=== PATIENT | female | born 1950 | race Caucasian/White ===

== ENCOUNTER 2016-09-16 18:26 | Observation (INO) ==
[2016-09-16] MEDS ORDERED: Ondansetron 4 MG/2 ML VIAL IV ONE (20:23)
[2016-09-16] MEDS ORDERED: 0.9 % Sodium Chloride 1,000 ML IV ONE (20:23)
[2016-09-16] MEDS ORDERED: *HR* Morphine 2 MG/ML SYRINGE IV ONE (20:23)
[2016-09-16 20:33] LABS: Bilirubin,Urine Small (Negative); Blood,Urine Negative (Negative); Clarity,Urine Cloudy (Clear); Color,Urine Dark Yellow (Yellow); Glucose,Urine (UA) Normal (Normal); Ketones,Urine 40 mg/dL (Negative); Leukocyte Esterase,Urine Small (Negative); Nitrite,Urine Negative (Negative); Protein,Urine Negative (Neg-Trace); Specific Gravity,Urine 1.023 (1.010-1.025); Urobilinogen,Urine Normal (Normal)
[2016-09-16 20:35] LABS: Bacteria,Urine None Seen per hpf (None-Few); Hyaline Casts,Urine None Seen per lpf (None-Few); RBC,Urine 0-3 per hpf (0-3); Squamous Epithelial Cell,Urine Many per lpf (None-Few); WBC,Urine 0-3 per hpf (0-3)
[2016-09-16 20:44] LABS: Basophils % 0.4 %; Eosinophils # 0.1 K/mcL (0.0-0.6); Hematocrit 43.8 % (35.3-44.9); Hemoglobin 14.9 g/dL (11.5-15.4); Immature Granulocytes % 0.1 % (0-4); Lymphocytes # 1.1 K/mcL (0.6-4.6); Lymphocytes % 15.3 %; Mean Corpuscular Hemoglobin 30.7 pg (28.0-33.3); Mean Corpuscular Volume 90.1 fL (83.0-100.0); Monocytes # 0.7 K/mcL (0.0-1.3); Monocytes % 9.8 %; Neutrophils # 5.1 K/mcL (1.6-8.9); Platelet Count 145 K/mcL (140-400); Red Blood Count 4.86 M/mcL (3.82-4.97); Red Cell Distribution Width 12.4 % (11.5-14.5); Segmented Neutrophils % 73.4 %
[2016-09-16 20:49] LABS: INR 1.2; Prothrombin Time 12.8 Seconds (9.4-12.1)
[2016-09-16 20:52] LABS: Activated Partial Thrombo Time 26.2 Seconds (26.0-36.0)
--- NOTE | 2016-09-16 20:54 | Emergency Department Note ---
Disposition Clinical Impression: Choledocholithiasis Disposition: Admitted As Inpatient Condition: Good Referrals: Jonh Guerra MD [Primary Care Provider] - Forms: Work/School Release, ED Satisfaction Letter Abdominal Pain HPI - General Chief Complaint: ED Abdominal Pain Stated Complaint: "chepe got gallstones" Time Seen by Provider: 09/16/16 20:18 Source: patient Nursing Notes Reviewed: Yes Vital Signs Reviewed: Yes - History of Present Illness HPI Narrative: Patient comes in complaining of abdominal pain is going on for few days. Patient states she was told she had gallstones and her surgeon ordered a scan to be performed. Patient states she had not keep anything down so she presents earlier. Patient denies fevers or chills denies bowel bladder dysfunction. Patient does complains of pain in her upper abdomen. Patient denies aggravating or alleviating factors. Patient states the pain starts in the middle and radiates to this sides bilaterally. Patient denies prior history of similar symptoms. Pain Scale: 8 - Related Data Home Medications Medication Instructions Recorded Confirmed Aspirin Enteric Coated [Aspirin EC] 81 mg PO DAILY 03/10/16 03/10/16 Atorvastatin [Lipitor] 10 mg PO HS 03/10/16 03/10/16 Cholecalciferol (D-3) [Vitamin D] 1,000 unit PO DAILY 03/10/16 03/10/16 Levothyroxine [Synthroid] 50 mcg PO DAILY 03/10/16 03/10/16 Purvis-3/Dha/Epa/Fish Oil [Fish Oil 1,000 mg PO DAILY 03/10/16 03/10/16 1,000 mg Softgel] Previous Rx's Medication Instructions Recorded Ondansetron ODT [Zofran ODT] 4 mg SL Q6HR PRN #7 tab.rapdis 03/21/16 Oxycodone HCl/Acetaminophen 1 each PO Q6HR PRN #7 tablet 03/21/16 [Percocet 5-325 mg Tablet] Tamsulosin HCl [Flomax] 0.4 mg PO DAILY #7 cap.er.24h 03/21/16 Allergies Allergy/AdvReac Type Severity Reaction Status Date / Time Penicillins Allergy See Verified 09/16/16 19:25 Comments All systems ED: reviewed and negative except as stated. Abdominal Pain PMH - Past Medical History Medical history: Reports: arthritis, cancer, hyperlipidemia, hypertension, osteoporosis, thyroid disease Female Surgical History: Reports: hip replacement Psychiatric history: Reports: anxiety - Social History Smoking status: Never smoker Alcohol use: Reports: none Drug use: Reports: none Physical Exam - General Limitations: no limitations General appearance: alert - Head Head exam: atraumatic, normocephalic, normal inspection - Eye Eye exam: Present: normal appearance, PERRL, EOMI - ENT ENT exam: normal exam, normal oropharynx, mucous membranes moist - Neck Neck exam: Present: normal inspection, full ROM, trachea midline - Chest Chest inspection: Present: normal inspection, symmetric chest wall rise - Respiratory Respiratory exam: Present: normal lung sounds bilaterally - Cardiovascular Cardiovascular exam: Present: regular rate, normal rhythm, normal heart sounds - Abdominal Exam Abdominal exam: Present: soft, tenderness. Absent: distention, guarding, rebound Abdominal tenderness: Present: epigastrium - Extremities Exam Extremities exam: Present: normal inspection, full ROM. Absent: tenderness, pedal edema - Back Exam Back exam: Present: normal inspection, full ROM. Absent: tenderness - Neurological Exam Neurological exam: Present: alert, oriented X3 - Psychiatric Psychiatric exam: Present: normal affect, normal mood - Skin Skin exam: Present: warm, dry, intact, normal color Course - Consultations Consultation #1: Discussed this patient with Dr. CORDOVA who states that the patient will need ERCP. Patient will be admitted to the hospitalist service was consult to gastroenterology Vital Signs Temperature 98.0 F 09/16/16 19:21 Pulse Rate 66 09/16/16 19:21 Respiratory Rate 17 09/16/16 19:21 Blood Pressure 117/62 09/16/16 19:21 O2 Sat by Pulse Oximetry 98 09/16/16 19:21 Temperature 98.0 F 09/16/16 19:21 Pulse Rate 55 09/16/16 21:30 Respiratory Rate 20 09/16/16 21:30 Blood Pressure 152/75 09/16/16 21:30 O2 Sat by Pulse Oximetry 97 09/16/16 21:30 Oxygen Delivery Oxygen Delivery Room Air Abdominal Pain - Differential Diagnosis Differential Diagnosis: Likely: abdominal pain non-specific, acute appendicitis , constipation, diverticulitis, gastroenteritis, small bowel obstruction - Lab Data Lab results reviewed: Yes I reviewed the patient's lab results. Result diagrams: 09/16/16 20:33 02/14/17 20:33 Lab Results 09/16/16 09/16/16 09/16/16 Range/Units 20:15 20:33 20:33 WBC 6.9 (4.3-11.1) K/mcL RBC 4.86 (3.82-4.97) M/mcL Hgb 14.9 (11.5-15.4) g/dL Hct 43.8 (35.3-44.9) % MCV 90.1 (83.0-100.0) fL MCH 30.7 (28.0-33.3) pg MCHC 34.0 (31.6-35.5) g/dL RDW 12.4 (11.5-14.5) % Plt Count 145 (140-400) K/mcL MPV 11.0 (9.4-12.4) fL Immature Gran % 0.1 (0-4) % Seg Neutrophils % 73.4 % Lymphocytes % 15.3 % Monocytes % 9.8 % Eosinophils % 1.0 % Basophils % 0.4 % Neutrophils # 5.1 (1.6-8.9) K/mcL Lymphocytes # 1.1 (0.6-4.6) K/mcL Monocytes # 0.7 (0.0-1.3) K/mcL Eosinophils # 0.1 (0.0-0.6) K/mcL Basophils # 0.0 (0.0-0.2) K/mcL PT 12.8 H (9.4-12.1) Seconds INR 1.2 APTT 26.2 (26.0-36.0) Seconds Sodium (136-145) mEq/L Potassium (3.5-4.5) mEq/L Chloride (98-109) mEq/L Carbon Dioxide (19-29) mEq/L BUN (7-20) mg/dL Creatinine (0.57-1.11) mg/dL Est GFR ( Amer) (> 60) Est GFR (Non-Af Amer) (> 60) BUN/Creatinine Ratio (6-26) Glucose (70-99) mg/dL Calculated Osmolality (280-300) Lactic Acid (0.5-2.2) mmol/L Calcium (8.6-10.8) mg/dL Total Bilirubin (0.2-1.2) mg/dL AST (5-34) Units/L ALT (0-55) Units/L Alkaline Phosphatase (38-126) Units/L Troponin I (0-0.03) ng/mL Serum Total Protein (6.0-8.3) g/dL Albumin (3.5-5.0) g/dL Globulin (2.4-3.5) g/dL Albumin/Globulin Ratio (1.1-2.2) Lipase (8-78) Units/L Urine Color Dark Yellow (Yellow) Urine Clarity Cloudy A (Clear) Urine pH 6.0 (5.0-8.0) pH Units Ur Specific [place] 1.023 (1.010-1.025) Urine Protein Negative (Neg-Trace) mg/dL Urine Glucose (UA) Normal (Normal) mg/dL Urine Ketones 40 H (Negative) mg/dL Urine Blood Negative (Negative) Urine Nitrite Negative (Negative) Urine Bilirubin Small H (Negative) Urine Urobilinogen Normal (Normal) mg/dL Ur Leukocyte Esterase Small H (Negative) Urine Microscopic RBC 0-3 (0-3) per hpf Urine Microscopic WBC 0-3 (0-3) per hpf Ur Squamous Epith Cells Many H (None-Few) per lpf Urine Bacteria None Seen (None-Few) per hpf Hyaline Casts None Seen (None-Few) per lpf Ur Culture Indicated? YES A (NO) 09/16/16 09/16/16 09/16/16 Range/Units 20:33 20:33 20:33 WBC (4.3-11.1) K/mcL RBC (3.82-4.97) M/mcL Hgb (11.5-15.4) g/dL Hct (35.3-44.9) % MCV (83.0-100.0) fL MCH (28.0-33.3) pg MCHC (31.6-35.5) g/dL RDW (11.5-14.5) % Plt Count (140-400) K/mcL MPV (9.4-12.4) fL Immature Gran % (0-4) % Seg Neutrophils % % Lymphocytes % % Monocytes % % Eosinophils % % Basophils % % Neutrophils # (1.6-8.9) K/mcL Lymphocytes # (0.6-4.6) K/mcL Monocytes # (0.0-1.3) K/mcL Eosinophils # (0.0-0.6) K/mcL Basophils # (0.0-0.2) K/mcL PT (9.4-12.1) Seconds INR APTT (26.0-36.0) Seconds Sodium 139 (136-145) mEq/L Potassium 4.6 H (3.5-4.5) mEq/L Chloride 108 (98-109) mEq/L Carbon Dioxide 21 (19-29) mEq/L BUN 19 (7-20) mg/dL Creatinine 0.78 (0.57-1.11) mg/dL Est GFR ( Amer) > 60 (> 60) Est GFR (Non-Af Amer) > 60 (> 60) BUN/Creatinine Ratio 24 (6-26) Glucose 98 (70-99) mg/dL Calculated Osmolality 290 (280-300) Lactic Acid 0.8 (0.5-2.2) mmol/L Calcium 9.6 (8.6-10.8) mg/dL Total Bilirubin 2.5 H D (0.2-1.2) mg/dL AST 261 H (5-34) Units/L ALT 237 H (0-55) Units/L Alkaline Phosphatase 199 H (38-126) Units/L Troponin I 0.00 (0-0.03) ng/mL Serum Total Protein 7.4 (6.0-8.3) g/dL Albumin 3.9 (3.5-5.0) g/dL Globulin 3.5 (2.4-3.5) g/dL Albumin/Globulin Ratio 1.1 (1.1-2.2) Lipase 22 (8-78) Units/L Urine Color (Yellow) Urine Clarity (Clear) Urine pH (5.0-8.0) pH Units Ur Specific [place] (1.010-1.025) Urine Protein (Neg-Trace) mg/dL Urine Glucose (UA) (Normal) mg/dL Urine Ketones (Negative) mg/dL Urine Blood (Negative) Urine Nitrite (Negative) Urine Bilirubin (Negative) Urine Urobilinogen (Normal) mg/dL Ur Leukocyte Esterase (Negative) Urine Microscopic RBC (0-3) per hpf Urine Microscopic WBC (0-3) per hpf Ur Squamous Epith Cells (None-Few) per lpf Urine Bacteria (None-Few) per hpf Hyaline Casts (None-Few) per lpf Ur Culture Indicated? (NO) - Radiology Data Radiology results reviewed: Yes I reviewed the patient's radiology results. Abdomen/Pelvis CT 09/16/16 20:18 IMPRESSION: Residual or recurrent 5 mm calculus within the distal common bile duct with dilatation of the common bile duct and urothelial enhancement, suggestive of inflammation or potentially infection. A small amount of pneumobilia is also seen within the left hepatic lobe; correlate with history of any recent biliary intervention. Cholelithiasis. Mild gallbladder wall thickening is seen, for which cholecystitis is a consideration. Right upper quadrant ultrasound is suggested for further characterization. Diverticulosis, without yasmin diverticulitis. Fecal loading of the colon. D/ / Kt Rosenberg MD / Kt Rosenberg MD Interpreting Provider: Kt Rosenberg MD Critical Care Time Total Critical Care Time: 45 Attestation: Critical care performed: Time is exclusive of separately billable procedures. Time includes: direct patient care, patient reassessment, coordination of patient care, interpretation of data (laboratory data, radiology data, and respiratory data), review of patient's medical records, medical consultation and documentation of patient care. Procedures included in critical care time: Procedures excluded from critical care time:
[2016-09-16 20:58] LABS: Alanine Aminotransferase 237 Units/L (0-55); Albumin 3.9 g/dL (3.5-5.0); Albumin/Globulin Ratio 1.1 (1.1-2.2); Alkaline Phosphatase 199 Units/L (38-126); Aspartate Amino Transferase 261 Units/L (5-34); BUN/Creatinine Ratio 24 (6-26); Blood Urea Nitrogen 19 mg/dL (7-20); Calcium 9.6 mg/dL (8.6-10.8); Carbon Dioxide 21 mEq/L (19-29); Chloride 108 mEq/L (98-109); Globulin 3.5 g/dL (2.4-3.5); Glucose 98 mg/dL (70-99); Lipase 22 Units/L (8-78); Osmolality,Calculated 290 (280-300); Potassium 4.6 mEq/L (3.5-4.5); Sodium 139 mEq/L (136-145); Total Protein 7.4 g/dL (6.0-8.3); eGFR For African Americans > 60 (> 60); eGFR For Non-African Americans > 60 (> 60)
[2016-09-16 21:01] LABS: Bilirubin,Total 2.5 mg/dL (0.2-1.2)
[2016-09-17] MEDS ORDERED: Naloxone 0.4 MG/ML INJ IVP PRN (01:15)
[2016-09-17] MEDS ORDERED: Benzonatate 100 MG CAPSULE PO PRN (01:15)
[2016-09-17] MEDS ORDERED: Acetaminophen 325 MG TABLET PO PRN (01:15)
--- NOTE | 2016-09-17 01:30 | Internal Med History&Physical ---
Date of Encounter: 09/16/16 Time of Encounter: 23:45 Assessment and Plan (1) Acute abdominal pain syndrome Current visit: Yes Status: Acute . (2) Cholestatic jaundice Current visit: Yes Status: Acute . (3) Calculus of common bile duct and gallbladder Current visit: Yes Status: Acute . (4) Hypothyroidism Current visit: Yes Status: Chronic . Qualifiers: Hypothyroidism type: acquired Qualified Code(s): E03.9 - Hypothyroidism, unspecified (5) Dyslipidemia Current visit: Yes Status: Chronic . (6) Hypertension Current visit: Yes Status: Chronic . Qualifiers: Hypertension type: essential hypertension Qualified Code(s): I10 - Essential (primary) hypertension (7) Choledocholithiasis Current visit: Yes Status: Acute . (8) Obesity (BMI 30.0-34.9) Current visit: Yes Status: Chronic . (9) Constipation Current visit: Yes Status: Chronic . Qualifiers: Constipation type: unspecified constipation type Qualified Code(s): K59.00 - Constipation, unspecified Internal Medicine - H&P: HPI Chief complaint: Acute abdominal pain Admitted From: Emergency Dept Plans for Post Hospital Care: Home History of present illness: Ms. Sterling is a 66 year old female with medical history significant for cholelithiasis, hypothyroidism, hypertension, dyslipidemia, diverticulosis coli , GERD/dysphagia/eosinophilic esophagitis,chronic LBP s/p lumbar fusion, mixed anxiety disorder, osteoarthritis, osteopenia, migraine, urge incontinence/ urinary retention, obesity, nonsmoker. The patient was visited and interviewed and examined. Patient is admitted to [facility] via the emergency department with reports of 6 weeks of the generalized abdominal pain symptoms worse in the days leading up to admission. She had been seen as an outpatient by her primary care physician and general surgeon or studies have been performed suggesting the cholelithiasis and possible associated cholecystitis. Plan was to proceed with elective cholecystectomy. However the patient became more symptomatic and grossly anorectic for solids and liquids. Due to inability to oral nutrition and hydration she presented earlier. She denied any associated fevers chills sweats. Denies any overt bowel or bladder dysfunction diarrhea constipation melena or hematemesis bright red blood per rectum. Denies flank pain dysuria hematuria. Denies any upper respiratory complaints. He acknowledges pain in the upper abdomen. Seems him again in the middle of the upper abdomen and radiates laterally into both sides and flank. Prior history of similar complaints. Denies any specific aggravating or alleviating factors. Findings in the ED: temperature 98 pulse 55-66 respirations 17-20 BP 117-152/60-75 O2 saturation 98% room air. WBC 6.9 hemoglobin 14.9 platelets 145,000. Differential normal. PT 12.8 INR 1.2. PTT 26.2. Urinalysis cloudy. Large ketones. Small bilirubin. Small leukocyte esterase. 3 RBC. 3 WBC. Many epithelial cells. Metabolic panel normal. Hepatic function total bilirubin 2.5 AST 261 ALT 237 alkaline phosphatase 199. Albumin 3.9 total 7.[address]. Lipase 22 CT abdomen and pelvis w/IV contrast demonstrated residual/recurrent 5 mm calculus within distal common bile duct. Dilatation of common bile duct and urothelial enhancement. Findings suggestive of inflammation versus potentially infection. Small amount of pneumobilia with a left hepatic lobe. Cholelithiasis. Mild gallbladder wall thickening. Consider cholecystitis. Diverticulosis without diverticulitis. Fecal loading of colon. No evidence of free air or fluid. Fat-containing periumbilical hernia. No inguinal adenopathy. Bladder grossly unremarkable. Appendix within normal limits and caliper. Small bowel loops nondilated. Calcification of the abdominal aorta and iliac arteries. Perinephric stranding. Bilateral pelviectasis. Lower atelectasis. Right lower lobe pulmonary nodules consistent with granulomatous disease. 2 mm noncalcified right lower lobe pulmonary nodule unchanged. Preliminary impression suggest symptomatic cholelithiasis with common bile duct distal obstruction with 5 mm calculus. RadioGraphic findings suggest associated cholecystitis. Laboratory suggest a cholestatic jaundice due to common bile duct obstruction. She does not meet SIRS or sepsis criteria at the time of admission. Findings suggest acute need for ERCP and sphincterotomy and stone retrieval. Ultimately cholecystectomy will be required. Patient is at risk for further acute clinical decline and morbidity given her presenting complaints, findings and comorbidities. Workup and treatment will proceed comprehensively. Cumulative laboratory and radiographic data base was reviewed, considered and discussed. Pertinent ancillary medical records including ECW and PCI documentation was reviewed and considered. Given the patient's presenting concerns, past medical history, clinical findings and symptoms, she is admitted at this time will undergo further evaluation and disposition. Orders were written as per the computerized physician cook short order system.......................................................................... .................... Consultative opinions will be sought as clinical circumstances justify. Initial consultative opinion has been requested of gastroenterology in anticipation of ERCP/sphincterotomy and CBD calculus retrieval. General surgery consultation anticipated following ERCP for elective cholecystectomy planning. Pain management needs will be addressed. Laboratory and radiographic data base will be updated as appropriate. Studies include: Cultures of blood and urine, amylase, lipase, PT/INR, APTT, cardiac injury panel, BNP, metabolic and hematologic panel, magnesium, phosphorus, ionized calcium, thyroid panel, lipid profile, A1c, C-peptide, CRP, sedimentation rate, UA, UDS, hepatitis (ABC) profile, blood gas, lactic acid, serologies, etc. Precautions: Aspiration, fall, delirium protocol/surveillance initiated. Telemetry with continuous hemodynamic monitoring and pulse oximetry initiated. Empiric antibody coverage: Intravenous Invanz pending culture data. Special studies: CT abd/pelvis, chest x-ray, telemetry, EKG. Pulmonary toilet: Incentive spirometry. Aerosol bronchodilator, mucolytic, antitussive PRN. Supplemental oxygen. Corticosteroid therapy PRN. CPAP/BiPAP supplemental oxygen PRN. Aerosol Mucomyst therapy PRN. Fluid and electrolyte repletion efforts will proceed. Careful attention to fluid balance and renal recovery will be emphasized. Avoidance of nephrotoxic exposure and adverse drug drug interaction in the setting of impaired renal function will be monitored closely. Acute coronary syndrome protocol/surveillance initiated. DVT and PUD prophylaxis initiated: PPI therapy, intermittent pneumatic cuffs/ TEDs. Subcutaneous heparin. Early ambulation will be encouraged. Immunization updates recommended. Influenza and pneumococcal vaccinations as part of ongoing preventative healthcare recommendations strongly recommended. Smoking cessation counseling briefly addressed. Patient is a nonsmoker. Advanced care directive discussion briefly addressed. Patient does not declare any healthcare restrictions at this time. Cardiovascular risk appraisal and cardiovascular risk reduction efforts will be emphasized. Physical and occupational therapy may be consulted to evaluate/assess patient's functional capacity and progress mobility if circumstances justify. Nutrition/dietary education counseling may be considered as circumstances justify. Outpatient medication schedules will be reviewed, confirmed and facilitated as appropriate. Reconciliation of home treatments including adjustments, substitutions and reintroduction into the treatment regimen will address necessary maintenance therapies for chronic pre-existing medical conditions. Plan of care has been reviewed and discussed in detail with the patient. Questions addressed. Hospital course dependent upon clinical findings, treatment response and potential consultative interventions. Patient is at risk for further acute clinical decline and morbidity due to presenting chief complaints, findings and comorbid conditions. Condition is serious. Prognosis is cautiously optimistic. CODE STATUS is full. Past Med Surg Social Fam HX - Past Medical History Source: old records reviewed Medical history: arthritis, cancer, GERD (Eosinophilic esophagitis. Dysphagia. Gastric polyp.), hyperlipidemia, hypertension, migraine, osteoporosis ( Osteoporosis. Vitamin D deficiency.), renal disease (Overactive bladder. Incontinence, urge; urinary retention.), thyroid disease, other (Chronic low back pain status post lumbar fusion. Diverticulosis.) Psychiatric history: anxiety, other - Past Surgical History Surgical History: hip replacement (total hip replacement ), orthopedic, other (Lumbar fusion 2010. Left carpal tunnel surgery 2010. Right carpal tunnel surgery 2009. Back surgery 2009.), other (Colonoscopy. Upper endoscopy. Thyroidectomy. Bilateral tubal ligation 1979.) - Social History Smoking Status: Never smoker Smokeless Tobacco Status: No Alcohol use: none Drug use: none Occupational status: retired Current living situation: With Family Activity Level: Independent ambulation, Mostly sedentary Recent Out of Country Travel Within the Last 8 Weeks: No Exposure or Possible Exposure to Illness During Travel: No - Family History Mother Family Member Ethnicity: Non- Age at : 82 Cause of : Dementia/old age Hx Family GI Disorders: (Gallbladder removed) Father Family Member Ethnicity: Non- Age at : 80 Cause of : CHF Hx Family Cardiac Disorders: Yes (CHF) Hx Family Medical Disorders: (diabetes) Internal Medicine - H&P: Meds Aspirin Enteric Coated [Aspirin EC] 81 mg PO DAILY 03/10/16 [History] Cholecalciferol (D-3) [Vitamin D] 1,000 unit PO DAILY 03/10/16 [History] Levothyroxine [Synthroid] 50 mcg PO DAILY 03/10/16 [History] [place]-3/Dha/Epa/Fish Oil [Fish Oil 1,000 mg Softgel] 1,000 mg PO DAILY 03/10/16 [History] Omeprazole [PriLOSEC] 40 mg PO DAILY 09/17/16 [History] Rosuvastatin Calcium [Rosuvastatin Calcium] 10 mg PO DAILY 09/17/16 [History] Allergies Penicillins Allergy (Verified 09/17/16 09:22) See Comments childhood allergy. unsure of reaction All Systems PM: A 10-system review of systems was performed and is negative for pertinent findings except as documented above in the HPI. - Constitutional Constitutional: as per HPI, malaise, no chills, no fever(s), no night sweats - EENT Eyes: as per HPI, no change in vision, no discharge, no pain, no photophobia Ears: as per HPI, no ear discharge, no ear pain, no tinnitus Nose, mouth and throat: as per HPI, no dysphagia, no nasal discharge, no neck pain, no sore throat - Cardiovascular Cardiovascular ROS IM: as per HPI, lightheadedness, no chest pain, no diaphoresis, no dyspnea, no palpitations, no syncope - Respiratory Respiratory: as per HPI, no cough, no dyspnea, no wheezing, no excessive phlegm production - Gastrointestinal Gastrointestinal: as per HPI, abdominal pain, bloating, cramping, nausea, vomiting, other, no diarrhea, no hematemesis, no hematochezia, no melena - Genitourinary Genitourinary: as per HPI, urinary incontinence, no change in urinary stream, no dysuria, no flank pain, no hematuria Menstruation: as per HPI, post menopausal - Musculoskeletal Musculoskeletal ROS IM: as per HPI, no numbness, no tingling - Integumentary Integumentary IM: as per HPI, no rash, no unusual bruising - Neurological Neurological ROS: as per HPI, no confusion, no convulsions, no focal weakness, no numbness, no tingling, no tremor(s) - Psychiatric Psychiatric: as per HPI - Endocrine Endocrine IM: as per HPI - Hematologic/Lymphatic Hematologic/Lymphatic: as per HPI - Allergic/Immunologic Allergic/Immunologic: as per HPI - Constitutional Vitals: Temp Pulse Resp BP Pulse Ox 98.2 F 53 14 148/75 97 09/17/16 00:34 09/17/16 00:34 09/17/16 00:34 09/17/16 00:34 09/17/16 00:34 General appearance: Present: mild distress, A&O X 3, obese, answers questions appropriately - Head Head exam: Present: atraumatic, normocephalic - Eye Eye exam: Present: EOMI, PERRL, conjuntiva pink, sclera anicteric Pupils: Present: normal accommodation, PERRL - ENT ENT exam: Present: mucous membranes moist, normal external ear exam, normal oropharynx - Neck Neck exam general surgery: Present: full ROM, supple, trachea midline. Absent: lymphadenopathy, tenderness, nuchal rigidity - Respiratory Respiratory exam: Present: decreased breath sounds, CTAB. Absent: accessory muscle use, rales, rhonchi, wheezes - Cardiovascular Cardiovascular exam: Present: distant heart sounds, RRR, +S1, +S2. Absent: diastolic murmur, gallop, rubs, systolic murmur - GI/Abdominal GI/Abdominal exam: Present: normal bowel sounds, soft, tenderness, no peritoneal signs. Absent: distended, guarding, mass, rebound, rigid - Extremities Exam Extremities exam: Present: full ROM, warm, radial pulses palpable and symetrical. Absent: calf tenderness, cyanotic, pedal edema - Neurological Exam Neurological exam: Present: alert, CN II-XII intact, oriented X3, no focal deficits. Absent: pronater drift, facial droop, speech deficit - Psychiatric Psychiatric exam: Present: normal affect, normal mood - Skin Skin exam: Present: dry, intact, warm. Absent: petechiae, rash, urticaria, vesicles Internal Med - H&P Results - Labs CBC & Chem 7: 09/17/16 05:20 09/17/16 05:20 - Impressions Vital Signs Temp Pulse Resp BP Pulse Ox 09/17/16 00:34 98.2 F 53 14 148/75 97 09/16/16 23:48 20 141/85 09/16/16 23:00 56 20 141/85 98 09/16/16 21:30 55 20 152/75 97 09/16/16 21:00 52 20 141/66 95 09/16/16 20:30 56 20 141/76 95 09/16/16 20:15 64 20 141/71 99 09/16/16 19:21 98.0 F 66 17 117/62 98 Intake and Output 09/16/16 09/16/16 09/17/16 15:59 23:59 07:59 Intake Total 1000 / 1000 Balance 1000 / 1000 Intake: IV Fluids 1000 / 1000 0.9 % Sodium Chloride 1, 1000 / 1000 000 ML @ Wide Open IV BOLUS ONE Rx#:[id number] Other: Stool Characteristics Normal for Patient Stool Color Brown Weight 72.575 kg 72.66 kg Patient Weight 09/17/16 23:59 Weight 72.66 kg Short CBC 09/16/16 Range/Units 20:33 WBC 6.9 (4.3-11.1) K/mcL Hgb 14.9 (11.5-15.4) g/dL Hct 43.8 (35.3-44.9) % Plt Count 145 (140-400) K/mcL Neutrophils # 5.1 (1.6-8.9) K/mcL BMP 09/16/16 Range/Units 20:33 Sodium 139 (136-145) mEq/L Potassium 4.6 H (3.5-4.5) mEq/L Chloride 108 (98-109) mEq/L Carbon Dioxide 21 (19-29) mEq/L BUN 19 (7-20) mg/dL Creatinine 0.78 (0.57-1.11) mg/dL Glucose 98 (70-99) mg/dL Calcium 9.6 (8.6-10.8) mg/dL Cardiac Enzymes 09/16/16 Range/Units 20:33 Troponin I 0.00 (0-0.03) ng/mL Liver Function 09/16/16 Range/Units 20:33 Total Bilirubin 2.5 H D (0.2-1.2) mg/dL AST 261 H (5-34) Units/L ALT 237 H (0-55) Units/L Alkaline Phosphatase 199 H (38-126) Units/L Albumin 3.9 (3.5-5.0) g/dL Urine 09/16/16 Range/Units 20:15 Urine Color Dark Yellow (Yellow) Urine Clarity Cloudy A (Clear) Urine pH 6.0 (5.0-8.0) pH Units Ur Specific Stamps 1.023 (1.010-1.025) Urine Protein Negative (Neg-Trace) mg/dL Urine Glucose (UA) Normal (Normal) mg/dL Abnormal lab results PT 12.8 Seconds (9.4-12.1) H 09/16/16 20:33 Potassium 4.6 mEq/L (3.5-4.5) H 09/16/16 20:33 Total Bilirubin 2.5 mg/dL (0.2-1.2) H D 09/16/16 20:33 AST 261 Units/L (5-34) H 09/16/16 20:33 ALT 237 Units/L (0-55) H 09/16/16 20:33 Alkaline Phosphatase 199 Units/L (38-126) H 09/16/16 20:33 Urine Clarity Cloudy (Clear) A 09/16/16 20:15 Urine Ketones 40 mg/dL (Negative) H 09/16/16 20:15 Urine Bilirubin Small (Negative) H 09/16/16 20:15 Ur Leukocyte Esterase Small (Negative) H 09/16/16 20:15 Ur Squamous Epith Cells Many per lpf (None-Few) H 09/16/16 20:15 Ur Culture Indicated? YES (NO) A 09/16/16 20:15 Allergies Allergy/AdvReac Type Severity Reaction Status Date / Time Penicillins Allergy See Verified 09/16/16 19:25 Comments Laboratory Results WBC 6.9 K/mcL (4.3-11.1) 09/16/16 20:33 RBC 4.86 M/mcL (3.82-4.97) 09/16/16 20:33 Hgb 14.9 g/dL (11.5-15.4) 09/16/16 20:33 Hct 43.8 % (35.3-44.9) 09/16/16 20: MCV 90.1 fL (83.0-100.0) 09/16/16 20:33 MCH 30.7 pg (28.0-33.3) 09/16/16 20:33 MCHC 34.0 g/dL (31.6-35.5) 09/16/16 20: RDW 12.4 % (11.5-14.5) 09/16/16 20:33 Plt Count 145 K/mcL (140-400) 09/16/16 20:33 MPV 11.0 fL (9.4-12.4) 09/16/16 20: Immature Gran % 0.1 % (0-4) 09/16/16 20: Seg Neutrophils % 73.4 % 09/16/16 20:33 Lymphocytes % 15.3 % 09/16/16 20:33 Monocytes % 9.8 % 09/16/16 20:33 Eosinophils % 1.0 % 09/16/16 20: Basophils % 0.4 % 09/16/16 20:33 Neutrophils # 5.1 K/mcL (1.6-8.9) 09/16/16 20:33 Lymphocytes # 1.1 K/mcL (0.6-4.6) 09/16/16 20: Monocytes # 0.7 K/mcL (0.0-1.3) 09/16/16 20: Eosinophils # 0.1 K/mcL (0.0-0.6) 09/16/16: Basophils # 0.0 K/mcL (0.0-0.2) 09/16/16 20:33 PT 12.8 Seconds (9.4-12.1) H 09/16/16 20:33 INR 1.2 09/16/16 20:33 APTT 26.2 Seconds (26.0-36.0) 09/16/16 20:33 Sodium 139 mEq/L (136-145) 09/16/16 20:33 Potassium 4.6 mEq/L (3.5-4.5) H 09/16/16 20:33 Chloride 108 mEq/L (98-109) 09/16/16 20:33 Carbon Dioxide 21 mEq/L (19-29) 09/16/16 20:33 BUN 19 mg/dL (7-20) 09/16/16 20: Creatinine 0.78 mg/dL (0.57-1.11) 09/16/16 20:33 Est GFR ( Amer) > 60 (> 60) 09/16/16 20:33 Est GFR (Non-Af Amer) > 60 (> 60) 09/16/16 20:33 BUN/Creatinine Ratio 24 (6-26) 09/16/16 20:33 Glucose 98 mg/dL (70-99) 09/16/16 20:33 Calculated Osmolality 290 (280-300) 09/16/16 20:33 Lactic Acid 0.8 mmol/L (0.5-2.2) 09/16/16 20:33 Calcium 9.6 mg/dL (8.6-10.8) 09/16/16 20:33 Total Bilirubin 2.5 mg/dL (0.2-1.2) H D 09/16/16 20:33 AST 261 Units/L (5-34) H 09/16/16 20:33 ALT 237 Units/L (0-55) H 09/16/16 20:33 Alkaline Phosphatase 199 Units/L (38-126) H 09/16/16 20:33 Troponin I 0.00 ng/mL (0-0.03) 09/16/16 20:33 Serum Total Protein 7.4 g/dL (6.0-8.3) 09/16/16 20: Albumin 3.9 g/dL (3.5-5.0) 09/16/16: Globulin 3.5 g/dL (2.4-3.5) 09/16/16 20: Albumin/Globulin Ratio 1.1 (1.1-2.2) 09/16/16 20: Lipase 22 Units/L (8-78) 09/16/16 20: Urine Color Dark Yellow (Yellow) 09/16/16 20: Urine Clarity Cloudy (Clear) A 09/16/16 20: Urine pH 6.0 pH Units (5.0-8.0) 09/16/16 20:15 Ur Specific Stamps 1.023 (1.010-1.025) 09/16/16 20:15 Urine Protein Negative mg/dL (Neg-Trace) 09/16/16 20:15 Urine Glucose (UA) Normal mg/dL (Normal) 09/16/16 20: Urine Ketones 40 mg/dL (Negative) H 09/16/16 20:15 Urine Blood Negative (Negative) 09/16/16 20: Urine Nitrite Negative (Negative) 09/16/16 20:15 Urine Bilirubin Small (Negative) H 09/16/16 20:15 Urine Urobilinogen Normal mg/dL (Normal) 09/16/16 20:15 Ur Leukocyte Esterase Small (Negative) H 09/16/16 20:15 Urine Microscopic RBC 0-3 per hpf (0-3) 09/16/16 20:15 Urine Microscopic WBC 0-3 per hpf (0-3) 09/16/16 20:15 Ur Squamous Epith Cells Many per lpf (None-Few) H 09/16/16 20:15 Urine Bacteria None Seen per hpf (None-Few) 09/16/16 20:15 Hyaline Casts None Seen per lpf (None-Few) 09/16/16 20:15 Ur Culture Indicated? YES (NO) A 09/16/16 20:15 Impressions Abdomen/Pelvis CT 09/16/16 20:18 IMPRESSION: Residual or recurrent 5 mm calculus within the distal common bile duct with dilatation of the common bile duct and urothelial enhancement, suggestive of inflammation or potentially infection. A small amount of pneumobilia is also seen within the left hepatic lobe; correlate with history of any recent biliary intervention. Cholelithiasis. Mild gallbladder wall thickening is seen, for which cholecystitis is a consideration. Right upper quadrant ultrasound is suggested for further characterization. Diverticulosis, without yasmin diverticulitis. Fecal loading of the colon. D/ / Kt Rosenberg MD / Kt Rosenberg MD Interpreting Provider: Kt Rosenberg MD
[2016-09-17] MEDS: 0.9 % Sodium Chloride 1,000 ML IVC SCH (01:52)
[2016-09-17 03:45] LABS: Thyroid Stimulating Hormone 0.721 mcIU/mL (0.350-4.840)
[2016-09-17] MEDS: Pantoprazole 40 MG VIAL IVP SCH (06:04)
[2016-09-17 06:08] LABS: VBG HCO3 26.2 mEq/L (21-27); VBG PH 7.31 pH Units (7.32-7.42)
[2016-09-17] MEDS: *HR* Heparin 5,000 UNIT/ML VIAL SQ SCH ×3 (06:08→23:43)
[2016-09-17 06:09] LABS: Hematocrit 40.3 % (35.3-44.9); Hemoglobin 13.6 g/dL (11.5-15.4); Mean Corpuscular HGB Conc 33.7 g/dL (31.6-35.5); Mean Corpuscular Hemoglobin 31.2 pg (28.0-33.3); Mean Corpuscular Volume 92.4 fL (83.0-100.0); Mean Platelet Volume 11.7 fL (9.4-12.4); Platelet Count 119 K/mcL (140-400); Red Blood Count 4.36 M/mcL (3.82-4.97); Red Cell Distribution Width 12.5 % (11.5-14.5)
[2016-09-17 06:10] LABS: Hemoglobin A1C 5.2 %
[2016-09-17 06:20] LABS: Alanine Aminotransferase 252 Units/L (0-55); Albumin 3.2 g/dL (3.5-5.0); Albumin/Globulin Ratio 1.3 (1.1-2.2); Alkaline Phosphatase 181 Units/L (38-126); Aspartate Amino Transferase 209 Units/L (5-34); BUN/Creatinine Ratio 22 (6-26); Bilirubin,Total 1.7 mg/dL (0.2-1.2); Blood Urea Nitrogen 14 mg/dL (7-20); C-Reactive Protein 9 mg/L (Less than 5); Calcium 9.2 mg/dL (8.6-10.8); Carbon Dioxide 23 mEq/L (19-29); Chloride 112 mEq/L (98-109); Chol/HDL Ratio 2.7 (0-4.9); Cholesterol 154 mg/dL (< 200); Globulin 2.5 g/dL (2.4-3.5); Glucose 73 mg/dL (70-99); HDL Cholesterol 58 mg/dL (40-59); LDL Cholesterol,Calculated 85 mg/dL (0-99); Lipase 12 Units/L (8-78); Magnesium 2.3 mg/dL (1.6-2.6); Osmolality,Calculated 293 (280-300); Phosphorous 3.7 mg/dL (2.3-4.7); Potassium 4.1 mEq/L (3.5-4.5); Sodium 142 mEq/L (136-145); Triglycerides 54 mg/dL (< 150); eGFR For African Americans > 60 (> 60); eGFR For Non-African Americans > 60 (> 60)
[2016-09-17 06:22] LABS: Total Protein 5.7 g/dL (6.0-8.3)
[2016-09-17] MEDS: Aspirin Enteric Coated 81 MG Tablet PO SCH (07:56)
--- NOTE | 2016-09-17 09:17 | Gastroenterology Consult Note ---
<Charity Clarke - Last Filed: 09/17/16 11:50> Date of Encounter: 09/17/16 Time of Encounter: 10:55 - Assessment and plan (1) Choledocholithiasis Current Visit: Yes Status: Chronic Assessment and plan: ERCP (2) Constipation Current Visit: Yes Status: Chronic Assessment and plan: daily fiber supplement, miralax up to twice daily as needed. Qualifiers: Constipation type: unspecified constipation type Qualified Code(s): K59.00 - Constipation, unspecified - Time Spent With Patient Total time spent is greater than 50% in coordination of care (as documented) at patient's floor/unit and/or counseling patient: less than 15 minutes GI History of Present Illness - Data of Consult Patient: known to practice within the last 3 years Consult date: 09/17/16 Requesting Physician: Ac Mo - Consult Narrative Reason for consult: choledocholelithiasis History of present illness: Ms. Sterling is a 66 year old female with PMH significant for cholelithiasis, hypothyroidism, hypertension, dyslipidemia, diverticulosis coli, GERD/dysphagia / ,chronic LBP s/p lumbar fusion, mixed anxiety disorder, arthritis, osteopenia , migraine, urge incontinence/urinary retention, constipation.Patient is admitted to [facility] via the emergency department with reports of 6 weeks of the generalized abdominal pain symptoms worse in the days leading up to admission. She had been seen as an outpatient by Dr. Steele for symptomatic cholelithiasis and possible associated cholecystitis. Plan was to proceed with elective cholecystectomy. However the patient became more symptomatic causing her to ultimately present to ED with N/V, abdominal pain. CT abdomen and pelvis w/IV contrast demonstrated residual/recurrent 5 mm calculus within distal common bile duct. Dilatation of common bile duct and urothelial enhancement. Findings suggestive of inflammation versus potentially infection. Small amount of pneumobilia with a left hepatic lobe. Cholelithiasis. Mild gallbladder wall thickening. Laboratory suggest a cholestatic jaundice due to common bile duct obstruction. Bilirubin improved slightly overnight. She is known in GI clinic, having an EGD 03/2016 for complaints of dysphagia. EGD findings revealed esophagitis. Patient complains of worsening constipation with this problem, moving her bowels 2-3x weekly, sometimes with milk of mag. Encouraged her to use fiber supplement, miralax daily if necessary to improve. Colonoscopy: 2012 - unknown findings EGD: 03/2016 Dr. Good - esophagitis, s/p empiric dilation Past Med Surg Social Fam HX - Past Medical History Medical history: arthritis, cancer, GERD (Eosinophilic esophagitis. Dysphagia. Gastric polyp.), hyperlipidemia, hypertension, migraine, osteoporosis ( Osteoporosis. Vitamin D deficiency.), renal disease (Overactive bladder. Incontinence, urge; urinary retention.), thyroid disease, other (Chronic low back pain status post lumbar fusion. Diverticulosis.) Psychiatric history: anxiety, other - Past Surgical History Surgical History: hip replacement (total hip replacement ), orthopedic, other (Lumbar fusion 2010. Left carpal tunnel surgery 2010. Right carpal tunnel surgery 2009. Back surgery 2009.), other (Colonoscopy. Upper endoscopy. Thyroidectomy. Bilateral tubal ligation 1979.) - Social History Smoking Status: Never smoker Smokeless Tobacco Status: No Alcohol use: none Drug use: none - Family History Mother Family Member Ethnicity: Non- Age at : 82 Cause of : Dementia/old age Hx Family GI Disorders: (Gallbladder removed) Father Family Member Ethnicity: Non- Age at : 80 Cause of : CHF Hx Family Cardiac Disorders: Yes (CHF) Hx Family Medical Disorders: (diabetes) - Gastrointestinal NSAID use: None Anticoagulation Use: None Number of BM Per Day: 2-3x weekly Gastrointestinal: Present: abdominal pain, constipation, nausea, vomiting - Constitutional Constitutional: as per HPI - EENT Eyes: as per HPI Ears: Present: as per HPI Nose, mouth and throat: Present: as per HPI - Cardiovascular Cardiovascular ROS: Present: as per HPI - Respiratory Respiratory IM: Present: as per HPI - Neurological ROS Neurological GI: Present: as per HPI - Hematologic/Lymphatic Hematologic/Lymphatic pediatric: Present: as per HPI - Musculoskeletal Musculoskeletal ROS GI: Present: as per HPI - Integumentary Integumentary GI: Present: as per HPI - Psychiatric ROS Psychiatric GI: Present: as per HPI - Endocrine Endocrine IM: Present: as per HPI - Constitutional Vitals: Temp Pulse Resp BP Pulse Ox 98.3 F 53 16 134/66 97 09/17/16 06:58 09/17/16 06:58 09/17/16 06:58 09/17/16 06:58 09/17/16 08:12 General appearance: Present: cooperative, A&O X 3, no acute distress, answers questions appropriately - Head Head exam: Present: atraumatic, normocephalic - Eye Eye exam: Present: normal appearance, sclera anicteric - ENT ENT exam: Present: mucous membranes moist - Neck Neck exam general surgery: Present: normal inspection, trachea midline - Respiratory Respiratory exam: Present: CTAB - Cardiovascular Cardiovascular exam: Present: RRR, +S1, +S2 - GI/Abdominal GI/Abdominal exam: Present: soft, tenderness, no peritoneal signs - Rectal Rectal exam: Present: deferred - Extremities Exam Extremities exam: Present: warm - Neurological Exam Neurological exam: Present: no focal deficits - Psychiatric Psychiatric exam: Present: normal affect, normal mood - Skin Skin exam: Present: dry, intact, normal color, warm Results - Labs CBC & Chem 7: 09/17/16 05:20 09/17/16 05:20 Labs: Last Result Calcium 9.2 mg/dL (8.6-10.8) 09/17/16 05:20 Troponin I 0.00 ng/mL (0-0.03) 09/16/16 20:33 C-Reactive Protein 9 mg/L (Less than 5) H 09/17/16 05:20 Triglycerides 54 mg/dL (< 150) 09/17/16 05:20 Entire Visit Hgb 13.6 g/dL (11.5-15.4) 09/17/16 05:20 Hct 40.3 % (35.3-44.9) 09/17/16 05:20 PT 12.8 Seconds (9.4-12.1) H 09/16/16 20:33 Total Bilirubin 1.7 mg/dL (0.2-1.2) H 09/17/16 05:20 AST 209 Units/L (5-34) H 09/17/16 05:20 ALT 252 Units/L (0-55) H 09/17/16 05:20 Amylase 40 Units/L (25-125) 09/17/16 01:44 Lipase 12 Units/L (8-78) 09/17/16 05:20 - ABG ABG results: PT/INR, D-dimer PT 12.8 Seconds (9.4-12.1) H 09/16/16 20:33 Consult Discharge Plan - Plan Referrals: Jonh Guerra MD [Primary Care Provider] - <Odilia Carballo - Last Filed: 09/17/16 21:33> Time of Encounter: 18:00 - Time Spent With Patient Total time spent is greater than 50% in coordination of care (as documented) at patient's floor/unit and/or counseling patient: GI History of Present Illness - Data of Consult Requesting Physician: Ac Mo - Consult Narrative History of present illness: Ms. Sterling is a 66 year old female - Constitutional Vitals: Temp Pulse Resp BP Pulse Ox 97.6 F 59 15 180/88 96 09/17/16 20:55 09/17/16 20:55 09/17/16 20:55 09/17/16 20:55 09/17/16 20:55 Results - Labs CBC & Chem 7: 09/17/16 05:20 09/17/16 05:20 Labs: Last Result Calcium 9.2 mg/dL (8.6-10.8) 09/17/16 05:20 Troponin I 0.00 ng/mL (0-0.03) 09/16/16 20:33 C-Reactive Protein 9 mg/L (Less than 5) H 09/17/16 05:20 Triglycerides 54 mg/dL (< 150) 09/17/16 05:20 Entire Visit Hgb 13.6 g/dL (11.5-15.4) 09/17/16 05:20 Hct 40.3 % (35.3-44.9) 09/17/16 05:20 PT 12.8 Seconds (9.4-12.1) H 09/16/16 20:33 Total Bilirubin 1.7 mg/dL (0.2-1.2) H 09/17/16 05:20 AST 209 Units/L (5-34) H 09/17/16 05:20 ALT 252 Units/L (0-55) H 09/17/16 05:20 Amylase 40 Units/L (25-125) 09/17/16 01:44 Lipase 12 Units/L (8-78) 09/17/16 05:20 - ABG ABG results: PT/INR, D-dimer PT 12.8 Seconds (9.4-12.1) H 09/16/16 20:33 - Attending Attestation I examined this patient and my medical decision-making was reviewed with the AUTOMATED MANUFACTURING INSTRUCTOR/PA/Advanced Practice Nurse/Resident Physician. I agree with the documented findings, disposition and treatment plan as described except to the extent set forth below.
[2016-09-17] MEDS ORDERED: *HR* Dextrose 50 % in Water (Syg) 50 ML SYRINGE IVP ONE ×2 (11:48→17:20)
--- NOTE | 2016-09-17 13:13 | Internal Med Progress Note ---
Date of Encounter: 09/17/16 Time of Encounter: 13:11 - Assessment and plan (1) Calculus of common bile duct and gallbladder Current Visit: Yes Status: Acute Assessment and plan: choledocolithiasis , possible acute cholecystitis start cipro iv and flagyl iv NPO ERCP today IVF Was planning on having elective CCY as outpatint prior to this episode CT showed a 5 mm calculus in the distal commonn bile duct, inflammation and possible infection high risk due to choledocolithiasis (2) Choledocholithiasis Current Visit: Yes Status: Chronic (3) Hypertension Current Visit: Yes Status: Chronic Assessment and plan: stable Qualifiers: Hypertension type: essential hypertension Qualified Code(s): I10 - Essential (primary) hypertension (4) Hypothyroidism Current Visit: Yes Status: Chronic Assessment and plan: continue levothyroxine Qualifiers: Hypothyroidism type: acquired Qualified Code(s): E03.9 - Hypothyroidism, unspecified - Subjective Interval history: Then patient has been complaining of RUQ pain for the past weeks after eating, pain improved at 7 Pm last night. Denies CP or SOB, no diarrhea, complains of epigastric pain rad to both Right and left upper quadrants. Mild nausea, no fever - Constitutional Vitals: Temp Pulse Resp BP Pulse Ox 98.5 F 53 14 126/70 97 09/17/16 11:44 09/17/16 11:44 09/17/16 11:44 09/17/16 11:44 09/17/16 11:44 General appearance: Present: mild distress, A&O X 3, obese, answers questions appropriately - Head Head exam: Present: atraumatic, normocephalic - Eye Eye exam: Present: PERRL, conjuntiva pink, sclera anicteric Pupils: Present: PERRL - Neck Neck exam general surgery: Present: supple, trachea midline. Absent: lymphadenopathy - Respiratory Respiratory exam: Present: CTAB. Absent: accessory muscle use, rales, rhonchi, wheezes - Cardiovascular Cardiovascular exam: Present: RRR, +S1, +S2. Absent: diastolic murmur, gallop, rubs, systolic murmur - GI/Abdominal GI/Abdominal exam: Present: normal bowel sounds, soft, tenderness (RUQ and epigastric tenderness), no peritoneal signs. Absent: distended - Extremities Exam Extremities exam: Present: warm, radial pulses palpable and symetrical. Absent : calf tenderness, cyanotic, pedal edema - Neurological Exam Neurological exam: Present: CN II-XII intact, oriented X3, no focal deficits. Absent: pronater drift, facial droop, speech deficit - Skin Skin exam: Present: dry, intact Internal Medicine: Result - Labs CBC & Chem 7: 09/17/16 05:20 09/17/16 05:20 Labs: Short CBC 09/17/16 Range/Units 05:20 WBC 4.1 L (4.3-11.1) K/mcL Hgb 13.6 (11.5-15.4) g/dL Hct 40.3 (35.3-44.9) % Plt Count 119 L (140-400) K/mcL BMP 09/17/16 05:20 Sodium 142 Potassium 4.1 Chloride 112 H Carbon Dioxide 23 BUN 14 Creatinine 0.63 Glucose 73 Calcium 9.2 Liver Function 09/17/16 Range/Units 05:20 Total Bilirubin 1.7 H (0.2-1.2) mg/dL AST 209 H (5-34) Units/L ALT 252 H (0-55) Units/L Alkaline Phosphatase 181 H (38-126) Units/L Albumin 3.2 L (3.5-5.0) g/dL - ABG Interpretation ABG results: PT/INR, D-dimer PT 12.8 Seconds (9.4-12.1) H 09/16/16 20:33 Consult Discharge Plan - Plan Referrals: Jonh Guerra MD [Primary Care Provider] -
[2016-09-17] MEDS: MetroNIDAZOLE 500 MG/100 ML 500 MG/100 ML BAG IVPB SCH ×2 (13:39→21:00)
--- NOTE | 2016-09-17 18:06 | Anesthesia Evaluation PreOp ---
Date of Encounter: 09/17/16 Time of Encounter: 18:04 - Past History Planned Operation: ercp Cardiac History: HTN, Hyperlipidemia Pulmonary History: Denies Any Significant HX JUNIOR PARALEGAL History: Other (chronic lbp, anxiety, migraine) Other Medical History: GERD, Other (dysphagia) Anesthesia History: No Prior Anesthetic Complications, Past Anesthesia (aide, lumbar fusion, bilat ctr, thyroid) Alcohol Use: none Drug use: none Medications and Allergies Aspirin Enteric Coated [Aspirin EC] 81 mg PO DAILY 03/10/16 [History] Cholecalciferol (D-3) [Vitamin D] 1,000 unit PO DAILY 03/10/16 [History] Levothyroxine [Synthroid] 50 mcg PO DAILY 03/10/16 [History] [place]-3/Dha/Epa/Fish Oil [Fish Oil 1,000 mg Softgel] 1,000 mg PO DAILY 03/10/16 [History] Omeprazole [PriLOSEC] 40 mg PO DAILY 09/17/16 [History] Rosuvastatin Calcium [Rosuvastatin Calcium] 10 mg PO DAILY 09/17/16 [History] Allergies Penicillins Allergy (Verified 09/17/16 09:22) See Comments childhood allergy. unsure of reaction - Meds/Allergy Pre-op Review Medications Reviewed: Yes Allergies Reviewed: Yes Beta Blockers on Current Med List: No Anesthesia Results - Labs 09/17/16 05:20 09/17/16 05:20 - Imaging EKG: report reviewed (sb) Anesthesia Exam Vital Signs/O2 Sat/Glucose, Most Current Temp Pulse Resp BP Pulse Ox 09/17/16 14:53 98.3 F 54 16 145/64 94 L - HEENT Pupil (Motor): Pupils equal, EOMI Mallampati: II Teeth: Normal Oral Opening: Greater than 3 - JUNIOR PARALEGAL LOC: Oriented JUNIOR PARALEGAL Motor: Normal RUE, Normal LUE, Normal RLE, Normal LLE, Normal Face JUNIOR PARALEGAL Sensory: Normal: RUE, LUE, RLE, LLE, Face - Cardiac Rhythm: Regular Murmur: None - Pulmonary Breath Sounds: bilateral Clear Respiratory Effort: Symmetrical Anesthesia Assess/Plan ASA Score: 2 Modified Houston Scale for Level of Consciousness: Cooperative, oriented, and tranquil Anesthetic Plan: General Monitoring Plan: Standard Monitors Recovery Plan: PACU
[2016-09-17] MEDS ORDERED: Indomethacin 50 MG SUPP.RECT RC ONE (18:11)
[2016-09-17] MEDS ORDERED: *HR* Succinylcholine 200 MG/10 ML VIAL IVP ONE (18:14)
[2016-09-17] MEDS ORDERED: *HR* FentaNYL (PF) 100 MCG/2 ML VIAL ONE (18:14)
[2016-09-17] MEDS ORDERED: *HR* Propofol 200 MG/20 ML VIAL IVP ONE (18:14)
[2016-09-17] MEDS: Ringers Solution, Lactated 1,000 ML IVC SCH ×2 (18:40→19:38)
[2016-09-17] MEDS ORDERED: Ringers Solution, Lactated 1,000 ML ONE (19:32)
[2016-09-17] MEDS ORDERED: Ondansetron 4 MG/2 ML VIAL IVP PRN (19:32)
[2016-09-17] MEDS ORDERED: Ondansetron 4 MG/2 ML VIAL ONE (19:33)
[2016-09-17] MEDS ORDERED: *HR* HYDROmorphone (PF) 1 MG/ML SYRINGE ONE (19:44)
[2016-09-17] MEDS: *HR* HYDROmorphone (PF) 1 MG/ML SYRINGE IVP PRN ×3 (19:45→20:02)
[2016-09-17] MEDS: Ondansetron 4 MG/2 ML VIAL IVP PRN (20:54)
[2016-09-17] MEDS ORDERED: hydrALAZINE 10 MG TABLET PO PRN (21:13)
[2016-09-18] MEDS: Ondansetron 4 MG/2 ML VIAL IVP PRN ×3 (02:04→15:20)
[2016-09-18] MEDS: *HR* HYDROmorphone (PF) 1 MG/ML SYRINGE IVP PRN ×2 (02:05→04:39)
[2016-09-18] MEDS: MetroNIDAZOLE 500 MG/100 ML 500 MG/100 ML BAG IVPB SCH ×3 (04:45→20:49)
[2016-09-18] MEDS: 0.9 % Sodium Chloride 1,000 ML IVC SCH ×3 (05:33→23:00)
[2016-09-18 06:39] LABS: Hematocrit 39.2 % (35.3-44.9); Hemoglobin 13.2 g/dL (11.5-15.4); Mean Corpuscular HGB Conc 33.7 g/dL (31.6-35.5); Mean Corpuscular Hemoglobin 30.9 pg (28.0-33.3); Mean Corpuscular Volume 91.8 fL (83.0-100.0); Mean Platelet Volume 11.3 fL (9.4-12.4); Platelet Count 112 K/mcL (140-400); Red Blood Count 4.27 M/mcL (3.82-4.97); Red Cell Distribution Width 12.2 % (11.5-14.5)
[2016-09-18 06:59] LABS: Alanine Aminotransferase 180 Units/L (0-55); Albumin 3.1 g/dL (3.5-5.0); Alkaline Phosphatase 164 Units/L (38-126); Aspartate Amino Transferase 84 Units/L (5-34); BUN/Creatinine Ratio 14 (6-26); Blood Urea Nitrogen 8 mg/dL (7-20); Calcium 8.6 mg/dL (8.6-10.8); Carbon Dioxide 21 mEq/L (19-29); Chloride 107 mEq/L (98-109); Glucose 112 mg/dL (70-99); Magnesium 1.6 mg/dL (1.6-2.6); Osmolality,Calculated 281 (280-300); Phosphorous 3.6 mg/dL (2.3-4.7); Potassium 3.9 mEq/L (3.5-4.5); Sodium 136 mEq/L (136-145); Total Protein 6.1 g/dL (6.0-8.3); eGFR For African Americans > 60 (> 60); eGFR For Non-African Americans > 60 (> 60)
[2016-09-18] MEDS: Pantoprazole 40 MG VIAL IVP SCH (07:36)
[2016-09-18] MEDS: *HR* Heparin 5,000 UNIT/ML VIAL SQ SCH (07:36)
[2016-09-18] MEDS: Aspirin Enteric Coated 81 MG Tablet PO SCH (07:39)
[2016-09-18] MEDS: *HR* OxyCODONE Immed Rel 5 MG TABLET PO PRN ×2 (07:40→13:48)
--- NOTE | 2016-09-18 09:05 | General Surgery Progress Note ---
Objective Vital Signs - Last 8 Hours Temp Pulse Resp BP Pulse Ox 09/18/16 07:25 98.3 F 53 16 136/69 96 09/18/16 03:25 98.3 F 58 14 151/71 96 09/18/16 02:26 98.1 F 59 18 167/70 96 Intake and Output 09/17/16 09/18/16 09/18/16 23:59 07:59 15:59 Intake Total 2275 / 2275 1200 / 1200 Output Total 1100 / 1100 750 / 750 Balance 1175 / 1175 450 / 450 Intake: IV Fluids 2275 / 2275 1200 / 1200 0.9 % Sodium Chloride 1, 1000 / 1000 1000 / 1000 000 ML @ 125 mls/hr IVC . Q8H MAGALY Rx#:[id number] Lactated Ringers 1,000 ML 975 / 975 @ 50 mls/hr IVC .Q20H MAGALY Rx#:[id number] Cipro 400 MG/200 ML 400 200 / 200 200 / 200 mg In 200 ml @ 200 mls/hr IVPB Q12H MAGALY Rx#: [id number] Flagyl 500 MG/100 ML 500 100 / 100 mg In 100 ml @ 100 mls/hr IVPB Q8H MAGALY Rx#: [id number] Oral 0 / 0 0 / 0 Output: Urine 1000 / 1000 750 / 750 Emesis 100 / 100 Other: Meal NPO Stool Size Moderate Stool Consistency liquid # Bowel Movements 1 Weight 72.66 kg 73.085 kg Blood Glucose* 100 105 Patient Weight 09/18/16 23:59 Weight 73.085 kg - Labs 09/18/16 05:44 09/18/16 05:44 Diabetes panel 09/18/16 Range/Units 05:44 Sodium 136 (136-145) mEq/L Potassium 3.9 (3.5-4.5) mEq/L Chloride 107 (98-109) mEq/L Carbon Dioxide 21 (19-29) mEq/L BUN 8 (7-20) mg/dL Creatinine 0.58 (0.57-1.11) mg/dL Glucose 112 H (70-99) mg/dL Calcium 8.6 (8.6-10.8) mg/dL AST 84 H (5-34) Units/L ALT 180 H (0-55) Units/L Alkaline Phosphatase 164 H (38-126) Units/L Albumin 3.1 L (3.5-5.0) g/dL Calcium panel 09/18/16 Range/Units 05:44 Calcium 8.6 (8.6-10.8) mg/dL Phosphorus 3.6 (2.3-4.7) mg/dL Albumin 3.1 L (3.5-5.0) g/dL Pituitary panel 09/18/16 Range/Units 05:44 Sodium 136 (136-145) mEq/L Potassium 3.9 (3.5-4.5) mEq/L Chloride 107 (98-109) mEq/L Carbon Dioxide 21 (19-29) mEq/L BUN 8 (7-20) mg/dL Creatinine 0.58 (0.57-1.11) mg/dL Glucose 112 H (70-99) mg/dL Calcium 8.6 (8.6-10.8) mg/dL Adrenal panel 09/18/16 Range/Units 05:44 Sodium 136 (136-145) mEq/L Potassium 3.9 (3.5-4.5) mEq/L Chloride 107 (98-109) mEq/L Carbon Dioxide 21 (19-29) mEq/L BUN 8 (7-20) mg/dL Creatinine 0.58 (0.57-1.11) mg/dL Glucose 112 H (70-99) mg/dL Calcium 8.6 (8.6-10.8) mg/dL Total Bilirubin 1.0 (0.2-1.2) mg/dL AST 84 H (5-34) Units/L ALT 180 H (0-55) Units/L Alkaline Phosphatase 164 H (38-126) Units/L Albumin 3.1 L (3.5-5.0) g/dL Consult Discharge Plan - Plan Referrals: Jonh Guerra MD [Primary Care Provider] -
--- NOTE | 2016-09-18 09:08 | Internal Med Progress Note ---
<Mary Chi - Last Filed: 09/18/16 09:06> Date of Encounter: 09/18/16 Time of Encounter: 09:06 - Assessment and plan (1) Calculus of common bile duct and gallbladder Current Visit: Yes Status: Acute Assessment and plan: ERCP yesterday with Dr. Carballo and multiple stones extracted Consult to Dr. Steele Continue cipro IV and Flagyl IV NPO High risk due to choledocolithiasis (2) Choledocholithiasis Current Visit: Yes Status: Acute (3) Hypertension Current Visit: Yes Status: Chronic Assessment and plan: stable Qualifiers: Hypertension type: essential hypertension Qualified Code(s): I10 - Essential (primary) hypertension (4) Hypothyroidism Current Visit: Yes Status: Chronic Assessment and plan: Continue levothyroxine Qualifiers: Hypothyroidism type: acquired Qualified Code(s): E03.9 - Hypothyroidism, unspecified - Time Spent With Patient 25 - 35 minutes - Subjective Interval history: Patient had ERCP yesterday with Dr. Carballo. Multiple stones extracted. Patient continues to have anorexia, nausea, abdominal pain, back pain. Requests cholecystectomy as soon as possible. Requests Dr. Steele. She is NPO. - Constitutional Vitals: Temp Pulse Resp BP Pulse Ox 98.3 F 53 16 136/69 96 09/18/16 07:25 09/18/16 07:25 09/18/16 07:25 09/18/16 07:25 09/18/16 07:25 General appearance: Present: mild distress, A&O X 3, obese, answers questions appropriately - Head Head exam: Present: atraumatic, normocephalic - Eye Eye exam: Present: PERRL, sclera anicteric Pupils: Present: PERRL - Neck Neck exam general surgery: Present: supple, trachea midline. Absent: lymphadenopathy - Respiratory Respiratory exam: Present: CTAB. Absent: accessory muscle use, rales, rhonchi, wheezes - Cardiovascular Cardiovascular exam: Present: RRR, +S1, +S2. Absent: diastolic murmur, gallop, rubs, systolic murmur - GI/Abdominal GI/Abdominal exam: Present: normal bowel sounds, soft, tenderness (mild epigastric), no peritoneal signs. Absent: distended - Extremities Exam Extremities exam: Present: warm, radial pulses palpable and symetrical. Absent : calf tenderness, cyanotic, pedal edema - Back Exam Back exam: Present: paraspinal tenderness (TTP left paraspinal) - Neurological Exam Neurological exam: Present: CN II-XII intact, oriented X3, no focal deficits. Absent: pronater drift, facial droop, speech deficit - Skin Skin exam: Present: dry, intact Internal Medicine: Result - Labs CBC & Chem 7: 09/18/16 05:44 09/18/16 05:44 Labs: Short CBC 09/18/16 Range/Units 05:44 WBC 5.9 (4.3-11.1) K/mcL Hgb 13.2 (11.5-15.4) g/dL Hct 39.2 (35.3-44.9) % Plt Count 112 L (140-400) K/mcL BMP 09/18/16 05:44 Sodium 136 Potassium 3.9 Chloride 107 Carbon Dioxide 21 BUN 8 Creatinine 0.58 Glucose 112 H Calcium 8.6 Liver Function 09/18/16 Range/Units 05:44 Total Bilirubin 1.0 (0.2-1.2) mg/dL AST 84 H (5-34) Units/L ALT 180 H (0-55) Units/L Alkaline Phosphatase 164 H (38-126) Units/L Albumin 3.1 L (3.5-5.0) g/dL - ABG Interpretation ABG results: PT/INR, D-dimer PT 12.8 Seconds (9.4-12.1) H 09/16/16 20:33 - Impressions Impressions Cath/Invasive Procedure 09/17/16 18:30 IMPRESSION: Fluoroscopy provided for ERCP procedure. D/ / Catrachito Nieto MD / Catrachito Nieto MD Interpreting Provider: Catrachito Nieto MD Consult Discharge Plan - Plan Referrals: Jonh Guerra MD [Primary Care Provider] - - Attending Attestation I examined this patient and my medical decision-making was reviewed with the AUTO REFINISHER/PA/Advanced Practice Nurse/Resident Physician. I agree with the documented findings, disposition and treatment plan as described except to the extent set forth below. <Ac Mo H - Last Filed: 09/18/16 10:59> - Assessment and plan (1) Calculus of common bile duct and gallbladder Current Visit: Yes Status: Acute (2) Choledocholithiasis Current Visit: Yes Status: Acute (3) Hypertension Current Visit: Yes Status: Chronic Qualifiers: Hypertension type: essential hypertension Qualified Code(s): I10 - Essential (primary) hypertension (4) Hypothyroidism Current Visit: Yes Status: Chronic Qualifiers: Hypothyroidism type: acquired Qualified Code(s): E03.9 - Hypothyroidism, unspecified - Constitutional Vitals: Temp Pulse Resp BP Pulse Ox 98.3 F 53 16 136/69 96 09/18/16 07:25 09/18/16 07:25 09/18/16 07:25 09/18/16 07:25 09/18/16 07:25 Internal Medicine: Result - Labs CBC & Chem 7: 09/18/16 05:44 09/18/16 05:44 Labs: Short CBC 09/18/16 Range/Units 05:44 WBC 5.9 (4.3-11.1) K/mcL Hgb 13.2 (11.5-15.4) g/dL Hct 39.2 (35.3-44.9) % Plt Count 112 L (140-400) K/mcL BMP 09/18/16 05:44 Sodium 136 Potassium 3.9 Chloride 107 Carbon Dioxide 21 BUN 8 Creatinine 0.58 Glucose 112 H Calcium 8.6 Liver Function 09/18/16 Range/Units 05:44 Total Bilirubin 1.0 (0.2-1.2) mg/dL AST 84 H (5-34) Units/L ALT 180 H (0-55) Units/L Alkaline Phosphatase 164 H (38-126) Units/L Albumin 3.1 L (3.5-5.0) g/dL - ABG Interpretation ABG results: PT/INR, D-dimer PT 12.8 Seconds (9.4-12.1) H 09/16/16 20:33 - Impressions Impressions Cath/Invasive Procedure 09/17/16 18:30 IMPRESSION: Fluoroscopy provided for ERCP procedure. D/ / 09/18/2016 09:03:10 Catrachito Nieto MD / tim Interpreting Provider: Catrachito Nieto MD - Attending Attestation CT showed a 5 mm calculus in the distal commonn bile duct, inflammation and possible infection NPO, IVF day 2 of cipro and flagyl CYY today, may discharge in am if stable
--- NOTE | 2016-09-18 09:24 | Gastroenterology Progress Note ---
Date of Encounter: 09/18/16 Time of Encounter: 11:15 - Assessment and plan (1) Choledocholithiasis Current Visit: Yes Status: Acute Assessment and plan: ERCP completed, stent in place. Plan for cholecystectomy. LFTs improving. (2) Constipation Current Visit: Yes Status: Chronic Assessment and plan: daily fiber supplement, miralax up to twice daily as needed. Qualifiers: Constipation type: unspecified constipation type Qualified Code(s): K59.00 - Constipation, unspecified - Time Spent With Patient Total time spent is greater than 50% in coordination of care (as documented) at patient's floor/unit and/or counseling patient: less than 15 minutes - Subjective Interval history: Patient had ERCP yesterday with Dr. Carballo. Multiple stones extracted. Patient continues to have anorexia, nausea, abdominal pain, back pain. Requests cholecystectomy as soon as possible. Requests Dr. Steele. She is NPO.Patient is somewhat bloated and has some residual upper abdominal discomfort today. - Constitutional Vitals: Temp Pulse Resp BP Pulse Ox 98.3 F 53 16 136/69 96 09/18/16 07:25 09/18/16 07:25 09/18/16 07:25 09/18/16 07:25 09/18/16 07:25 General appearance: Present: cooperative, A&O X 3, no acute distress, answers questions appropriately - Head Head exam: Present: atraumatic, normocephalic - Eye Eye exam: Present: normal appearance, sclera anicteric - ENT ENT exam: Present: mucous membranes moist - Neck Neck exam general surgery: Present: normal inspection, trachea midline - Respiratory Respiratory exam: Present: CTAB - Cardiovascular Cardiovascular exam: Present: RRR, +S1, +S2 - GI/Abdominal GI/Abdominal exam: Present: tenderness, no peritoneal signs - Rectal Rectal exam: Present: deferred - Extremities Exam Extremities exam: Present: warm - Neurological Exam Neurological exam: Present: no focal deficits - Psychiatric Psychiatric exam: Present: normal affect, normal mood - Skin Skin exam: Present: dry, intact, normal color, warm Results - Labs CBC & Chem 7: 09/18/16 05:44 09/18/16 05:44 Labs: Last Result Calcium 8.6 mg/dL (8.6-10.8) 09/18/16 05:44 Troponin I 0.00 ng/mL (0-0.03) 09/16/16 20:33 C-Reactive Protein 9 mg/L (Less than 5) H 09/17/16 05:20 Triglycerides 54 mg/dL (< 150) 09/17/16 05:20 Entire Visit Hgb 13.2 g/dL (11.5-15.4) 09/18/16 05:44 Hct 39.2 % (35.3-44.9) 09/18/16 05:44 PT 12.8 Seconds (9.4-12.1) H 09/16/16 20:33 Total Bilirubin 1.0 mg/dL (0.2-1.2) 09/18/16 05:44 AST 84 Units/L (5-34) H 09/18/16 05:44 ALT 180 Units/L (0-55) H 09/18/16 05:44 Amylase 40 Units/L (25-125) 09/17/16 01:44 Lipase 12 Units/L (8-78) 09/17/16 05:20 - ABG ABG results: PT/INR, D-dimer PT 12.8 Seconds (9.4-12.1) H 09/16/16 20:33 - Impressions Impressions Cath/Invasive Procedure 09/17/16 18:30 IMPRESSION: Fluoroscopy provided for ERCP procedure. D/ / 09/18/2016 09:03:10 Catrachito Nieto MD / tim Interpreting Provider: Catrachito Nieto MD Consult Discharge Plan - Plan Referrals: Jonh Guerra MD [Primary Care Provider] -
--- NOTE | 2016-09-18 09:27 | General Surgery Consult Note ---
<Pasquale Milner - Last Filed: 09/18/16 12:13> Date of Encounter: 09/18/16 Time of Encounter: 09:13 Assessment and Plan (1) Choledocholithiasis Current Visit: Yes Status: Acute The patient had a planned outpatient cholecystecomy, but had worsening symptoms of pain and anorexia causing her to come into the hospital before anticipated date of surgery. She underwent ERCP yesterday with removal of 3 gallstones and stent placement, but continues to have nausea with anorexia. Planned laparoscopic cholecystecomy this afternoon. Surgical procedure with possible complications were explained to the patient and all questions were answered. The patient is agreeable to the plan and consent form is signed. NPO Patient is on metronidazole and ciprofloxacin. Platelets 112. (2) Calculus of common bile duct and gallbladder Current Visit: Yes Status: Acute Patient underwent ERCP yesterday with 3 gallstones removed, and stent placed. (3) Hypertension Current Visit: Yes Status: Chronic Management per medicine team. Qualifiers: Hypertension type: essential hypertension Qualified Code(s): I10 - Essential (primary) hypertension (4) Hypothyroidism Current Visit: Yes Status: Chronic On synthroid. Management per medicine team. Qualifiers: Hypothyroidism type: acquired Qualified Code(s): E03.9 - Hypothyroidism, unspecified History of Present Illness Consult date: 09/18/16 Reason for consult: gallstones Requesting physician: Ac Mo History of present illness: This is a 66 year old female who presented to the emergency department on for complaints of abdominal pain. She was told that she has gallstones and had a planned cholecystectomy as an outpatient with Dr. Steele, but became more symptomatic and was unable to tolerate solids or liquids. She underwent ERCP yesterday with gallstone removal, but continues to have symptoms of pain in her back as well as nausea and loss of appetite. She denies any fevers and states her pain has improved after having the ERCP yesterday. Past Med Surg Social Fam HX - Past Medical History Medical history: arthritis, cancer, GERD (Eosinophilic esophagitis. Dysphagia. Gastric polyp.), hyperlipidemia, hypertension, migraine, osteoporosis ( Osteoporosis. Vitamin D deficiency.), renal disease (Overactive bladder. Incontinence, urge; urinary retention.), thyroid disease, other (Chronic low back pain status post lumbar fusion. Diverticulosis.) Psychiatric history: anxiety, other - Past Surgical History Surgical History: hip replacement (total hip replacement 20), orthopedic, other (Lumbar fusion 2010. Left carpal tunnel surgery 2010. Right carpal tunnel surgery 2009. Back surgery 2009.), other (Colonoscopy. Upper endoscopy. Thyroidectomy. Bilateral tubal ligation 1979.) - Social History Smoking Status: Never smoker Smokeless Tobacco Status: No Alcohol use: none Drug use: none - Family History Mother Family Member Ethnicity: Non- Age at : 82 Cause of : Dementia/old age Hx Family GI Disorders: (Gallbladder removed) Father Family Member Ethnicity: Non- Age at : 80 Cause of : CHF Hx Family Cardiac Disorders: Yes (CHF) Hx Family Medical Disorders: (diabetes) Medications and Allergies Aspirin Enteric Coated [Aspirin EC] 81 mg PO DAILY 03/10/16 [History] Cholecalciferol (D-3) [Vitamin D] 1,000 unit PO DAILY 03/10/16 [History] Levothyroxine [Synthroid] 50 mcg PO DAILY 03/10/16 [History] [facility]-3/Dha/Epa/Fish Oil [Fish Oil 1,000 mg Softgel] 1,000 mg PO DAILY 03/10/16 [History] Omeprazole [PriLOSEC] 40 mg PO DAILY 09/17/16 [History] Rosuvastatin Calcium [Rosuvastatin Calcium] 10 mg PO DAILY 09/17/16 [History] Allergies Penicillins Allergy (Verified 09/17/16 09:22) See Comments childhood allergy. unsure of reaction Review of Systems All systems PM: A 10-system review of systems was performed and is negative for pertinent findings except as documented above in the HPI. - Constitutional anorexia, headache(s), no chills, no fever(s) - Cardiovascular no chest pain, no dyspnea, no edema - Respiratory no cough, no dyspnea - Gastrointestinal bloating, nausea, no abdominal pain, no diarrhea, no melena, no vomiting - Genitourinary Genitourinary: no dysuria - Neurological no confusion, no loss of vision, no numbness, no paresthesias - Psychiatric no anxiety, no confusion General Surgery Exam Initial Vital Signs Temp Pulse Resp BP Pulse Ox 98.0 F 66 17 117/62 98 09/16/16 19:21 09/16/16 19:21 09/16/16 19:21 09/16/16 19:21 09/16/16 19:21 - General physical appearance well developed, well nourished, no distress - Eyes normal ocular movement - ENT normal mucosa - Neck trachea midline - Respiratory normal respiratory effort, clear to auscultation - Cardiovascular Cardiovascular exam: Present: RRR - Abdomen Abdomen general surgery: Present: bowel sounds present ((hypoactive)), soft, non tender - Integumentary Integumentary general surgery: Present: warm and dry - Neurologic Present: CN 2-12 grossly intact - Musculoskeletal Present: normal posture - Psychiatric Psychiatric general surgery: Present: appropriate, oriented to person, oriented to place, oriented to time, speech is normal, memory intact Exam Initial Vital Signs Temp Pulse Resp BP Pulse Ox 98.0 F 66 17 117/62 98 09/16/16 19:21 09/16/16 19:21 09/16/16 19:21 09/16/16 19:21 09/16/16 19:21 Results - Labs 09/18/16 05:44 09/18/16 05:44 Abnormal lab results Plt Count 112 K/mcL (140-400) L 09/18/16 05:44 PT 12.8 Seconds (9.4-12.1) H 09/16/16 20:33 VBG pH 7.31 pH Units (7.32-7.42) L 09/17/16 05:20 VBG pCO2 52 mmHg (41-51) H 09/17/16 05:20 VBG pO2 46 mmHg (25-40) H 09/17/16 05:20 Glucose 112 mg/dL (70-99) H 09/18/16 05:44 POC Glucose 105 (58-89) H 09/18/16 05:31 AST 84 Units/L (5-34) H 09/18/16 05:44 ALT 180 Units/L (0-55) H 09/18/16 05:44 Alkaline Phosphatase 164 Units/L (38-126) H 09/18/16 05:44 C-Reactive Protein 9 mg/L (Less than 5) H 09/17/16 05:20 Albumin 3.1 g/dL (3.5-5.0) L 09/18/16 05:44 Albumin/Globulin Ratio 1.0 (1.1-2.2) L 09/18/16 05:44 Urine Clarity Cloudy (Clear) A 09/16/16 20:15 Urine Ketones 40 mg/dL (Negative) H 09/16/16 20:15 Urine Bilirubin Small (Negative) H 09/16/16 20:15 Ur Leukocyte Esterase Small (Negative) H 09/16/16 20:15 Ur Squamous Epith Cells Many per lpf (None-Few) H 09/16/16 20:15 Ur Culture Indicated? YES (NO) A 09/16/16 20:15 Diabetes panel 09/18/16 Range/Units 05:44 Sodium 136 (136-145) mEq/L Potassium 3.9 (3.5-4.5) mEq/L Chloride 107 (98-109) mEq/L Carbon Dioxide 21 (19-29) mEq/L BUN 8 (7-20) mg/dL Creatinine 0.58 (0.57-1.11) mg/dL Glucose 112 H (70-99) mg/dL Calcium 8.6 (8.6-10.8) mg/dL AST 84 H (5-34) Units/L ALT 180 H (0-55) Units/L Alkaline Phosphatase 164 H (38-126) Units/L Albumin 3.1 L (3.5-5.0) g/dL Calcium panel 09/18/16 Range/Units 05:44 Calcium 8.6 (8.6-10.8) mg/dL Phosphorus 3.6 (2.3-4.7) mg/dL Albumin 3.1 L (3.5-5.0) g/dL Pituitary panel 09/18/16 Range/Units 05:44 Sodium 136 (136-145) mEq/L Potassium 3.9 (3.5-4.5) mEq/L Chloride 107 (98-109) mEq/L Carbon Dioxide 21 (19-29) mEq/L BUN 8 (7-20) mg/dL Creatinine 0.58 (0.57-1.11) mg/dL Glucose 112 H (70-99) mg/dL Calcium 8.6 (8.6-10.8) mg/dL Adrenal panel 09/18/16 Range/Units 05:44 Sodium 136 (136-145) mEq/L Potassium 3.9 (3.5-4.5) mEq/L Chloride 107 (98-109) mEq/L Carbon Dioxide 21 (19-29) mEq/L BUN 8 (7-20) mg/dL Creatinine 0.58 (0.57-1.11) mg/dL Glucose 112 H (70-99) mg/dL Calcium 8.6 (8.6-10.8) mg/dL Total Bilirubin 1.0 (0.2-1.2) mg/dL AST 84 H (5-34) Units/L ALT 180 H (0-55) Units/L Alkaline Phosphatase 164 H (38-126) Units/L Albumin 3.1 L (3.5-5.0) g/dL All other labs normal. Consult Discharge Plan - Plan Referrals: Jonh Guerra MD [Primary Care Provider] - - Attending Attestation I examined this patient and my medical decision-making was reviewed with the TRACTOR CRANE ENGINEER/PA/Advanced Practice Nurse/Resident Physician. I agree with the documented findings, disposition and treatment plan as described except to the extent set forth below. <Rex Steele M - Last Filed: 09/19/16 06:14> Review of Systems All systems PM: A 10-system review of systems was performed and is negative for pertinent findings except as documented above in the HPI. General Surgery Exam Initial Vital Signs Temp Pulse Resp BP Pulse Ox 98.0 F 66 17 117/62 98 09/16/16 19:21 09/16/16 19:21 09/16/16 19:21 09/16/16 19:21 09/16/16 19:21 Exam Initial Vital Signs Temp Pulse Resp BP Pulse Ox 98.0 F 66 17 117/62 98 09/16/16 19:21 09/16/16 19:21 09/16/16 19:21 09/16/16 19:21 09/16/16 19:21 Results - Labs 09/18/16 05:44 09/18/16 05:44 Abnormal lab results Plt Count 112 K/mcL (140-400) L 09/18/16 05:44 PT 12.8 Seconds (9.4-12.1) H 09/16/16 20:33 VBG pH 7.31 pH Units (7.32-7.42) L 09/17/16 05:20 VBG pCO2 52 mmHg (41-51) H 09/17/16 05:20 VBG pO2 46 mmHg (25-40) H 09/17/16 05:20 Glucose 112 mg/dL (70-99) H 09/18/16 05:44 AST 84 Units/L (5-34) H 09/18/16 05:44 ALT 180 Units/L (0-55) H 09/18/16 05:44 Alkaline Phosphatase 164 Units/L (38-126) H 09/18/16 05:44 C-Reactive Protein 9 mg/L (Less than 5) H 09/17/16 05:20 Albumin 3.1 g/dL (3.5-5.0) L 09/18/16 05:44 Albumin/Globulin Ratio 1.0 (1.1-2.2) L 09/18/16 05:44 Urine Clarity Cloudy (Clear) A 09/16/16 20:15 Urine Ketones 40 mg/dL (Negative) H 09/16/16 20:15 Urine Bilirubin Small (Negative) H 09/16/16 20:15 Ur Leukocyte Esterase Small (Negative) H 09/16/16 20:15 Ur Squamous Epith Cells Many per lpf (None-Few) H 09/16/16 20:15 Ur Culture Indicated? YES (NO) A 09/16/16 20:15 Diabetes panel 09/18/16 Range/Units 05:44 Sodium 136 (136-145) mEq/L Potassium 3.9 (3.5-4.5) mEq/L Chloride 107 (98-109) mEq/L Carbon Dioxide 21 (19-29) mEq/L BUN 8 (7-20) mg/dL Creatinine 0.58 (0.57-1.11) mg/dL Glucose 112 H (70-99) mg/dL Calcium 8.6 (8.6-10.8) mg/dL AST 84 H (5-34) Units/L ALT 180 H (0-55) Units/L Alkaline Phosphatase 164 H (38-126) Units/L Albumin 3.1 L (3.5-5.0) g/dL Calcium panel 09/18/16 Range/Units 05:44 Calcium 8.6 (8.6-10.8) mg/dL Phosphorus 3.6 (2.3-4.7) mg/dL Albumin 3.1 L (3.5-5.0) g/dL Pituitary panel 09/18/16 Range/Units 05:44 Sodium 136 (136-145) mEq/L Potassium 3.9 (3.5-4.5) mEq/L Chloride 107 (98-109) mEq/L Carbon Dioxide 21 (19-29) mEq/L BUN 8 (7-20) mg/dL Creatinine 0.58 (0.57-1.11) mg/dL Glucose 112 H (70-99) mg/dL Calcium 8.6 (8.6-10.8) mg/dL Adrenal panel 09/18/16 Range/Units 05:44 Sodium 136 (136-145) mEq/L Potassium 3.9 (3.5-4.5) mEq/L Chloride 107 (98-109) mEq/L Carbon Dioxide 21 (19-29) mEq/L BUN 8 (7-20) mg/dL Creatinine 0.58 (0.57-1.11) mg/dL Glucose 112 H (70-99) mg/dL Calcium 8.6 (8.6-10.8) mg/dL Total Bilirubin 1.0 (0.2-1.2) mg/dL AST 84 H (5-34) Units/L ALT 180 H (0-55) Units/L Alkaline Phosphatase 164 H (38-126) Units/L Albumin 3.1 L (3.5-5.0) g/dL All other labs normal. - Attending Attestation I reviewed the assessment and examination. Patient is has had intermittent symptoms of epigastric right upper quadrant pain but symptoms brought her to the emergency room yesterday. Currently mild pain status post ERCP with stent placement. No nausea or vomiting. I explained to the patient that I personally reviewed her ERCP imaging as well as CT scan study performed yesterday. I do agree it will be appropriate to proceed with a laparoscopic cholecystectomy at this time. Patient agrees with the plan.
[2016-09-18] MEDS ORDERED: Dexamethasone 4 MG/ML VIAL ONE (16:14)
[2016-09-18] MEDS ORDERED: *HR* FentaNYL (PF) 100 MCG/2 ML VIAL ONE (16:14)
[2016-09-18] MEDS ORDERED: *HR* Rocuronium Bromide 50 MG/5 ML VIAL ONE (16:14)
[2016-09-18] MEDS ORDERED: Neostigmine Methylsulfate 3 MG/3 ML SYRINGE ONE (16:14)
[2016-09-18] MEDS ORDERED: *HR* Midazolam HCl 2 MG/2 ML VIAL ONE (16:14)
[2016-09-18] MEDS ORDERED: *HR* Succinylcholine 200 MG/10 ML VIAL IVP ONE (16:14)
[2016-09-18] MEDS ORDERED: *HR* Propofol 200 MG/20 ML VIAL IVP ONE (16:14)
[2016-09-18] MEDS ORDERED: Ondansetron 4 MG/2 ML VIAL ONE (16:14)
[2016-09-18] MEDS ORDERED: Lidocaine -MPF 2% 2 ML VIAL ONE (16:14)
[2016-09-18] MEDS ORDERED: Lidocaine -MPF 4% 5 ML AMPUL ONE (16:14)
[2016-09-18] MEDS ORDERED: *HR* Promethazine 25 MG/ML VIAL IVP PRN (16:19)
[2016-09-18] MEDS ORDERED: *HR* HYDROmorphone (PF) 1 MG/ML SYRINGE IVP PRN ×2 (16:19→19:02)
[2016-09-18] MEDS ORDERED: Clindamycin 900 MG/50 ML 0 MG/0 ML IV.SOLN IVPB ONE (16:28)
--- NOTE | 2016-09-18 16:37 | Anesthesia Evaluation PreOp ---
<Mary Barron - Last Filed: 09/18/16 16:35> Date of Encounter: 09/18/16 Time of Encounter: 16:35 - Past History Planned Operation: LAP MATT Cardiac History: HTN (HYDRALAZINE SINUS BRADYCARDIA), Hyperlipidemia (ON LIPITOR) Pulmonary History: Denies Any Significant HX VOLTAGE TESTER History: Denies Any Significant HX Other Medical History: Thyroid (ON LEVOTHYROXINE), GERD, Other (ANXIETY DEPRESSION DYSPHAGIA) : No (POST MENOPAUSAL ) Alcohol Use: none Drug use: none Medications and Allergies Aspirin Enteric Coated [Aspirin EC] 81 mg PO DAILY 03/10/16 [History] Cholecalciferol (D-3) [Vitamin D] 1,000 unit PO DAILY 03/10/16 [History] Levothyroxine [Synthroid] 50 mcg PO DAILY 03/10/16 [History] [place]-3/Dha/Epa/Fish Oil [Fish Oil 1,000 mg Softgel] 1,000 mg PO DAILY 03/10/16 [History] Omeprazole [PriLOSEC] 40 mg PO DAILY 09/17/16 [History] Rosuvastatin Calcium [Rosuvastatin Calcium] 10 mg PO DAILY 09/17/16 [History] Allergies Penicillins Allergy (Verified 09/17/16 09:22) See Comments childhood allergy. unsure of reaction - Meds/Allergy Pre-op Review Medications Reviewed: Yes Allergies Reviewed: Yes Beta Blockers on Current Med List: No Anesthesia Results - Labs 09/18/16 05:44 09/18/16 05:44 Anesthesia Exam Vital Signs - Last 8 Hours Temp Pulse Resp BP Pulse Ox 09/18/16 14:50 98.9 F 56 16 155/72 97 09/18/16 11:00 97.7 F 53 16 134/64 94 L Intake and Output 09/18/16 09/18/16 09/18/16 07:59 15:59 23:59 Intake Total 1300 / 1300 0 / 0 Output Total 750 / 750 300 / 300 Balance 550 / 550 -300 / -300 Intake: IV Fluids 1300 / 1300 0.9 % Sodium Chloride 1, 1000 / 1000 000 ML @ 125 mls/hr IVC . Q8H MAGALY Rx#:[id number] Cipro 400 MG/200 ML 400 200 / 200 mg In 200 ml @ 200 mls/hr IVPB Q12H MAGALY Rx#: [id number] Flagyl 500 MG/100 ML 500 100 / 100 mg In 100 ml @ 100 mls/hr IVPB Q8H MAGALY Rx#: [id number] Oral 0 / 0 0 / 0 Output: Urine 750 / 750 300 / 300 Other: Meal Breakfast Percent of Meal Consumed 0% Stool Size Moderate Stool Consistency liquid # Bowel Movements 1 Weight 73.085 kg Blood Glucose* 105 79 Patient Weight 09/18/16 23:59 Weight 73.085 kg Weight: 73 KG NPO (# of Hours): >8 HOURS Pain Scale: 0 Pain Scale Used: Numeric (1 - 10) - HEENT Pupil (Motor): Pupils equal <LesCharanjitKristen M - Last Filed: 09/18/16 17:06> - Past History Cardiac History: Hyperlipidemia (maintained on Crestor) VOLTAGE TESTER History: Other (mixed anxiety disoder) Other Medical History: GERD (maintained on Prilosec), Other (urinary retention, urge incontinence) Anesthesia History: No Prior Anesthetic Complications, Past Anesthesia (s/p lumbar fusion, ERCP [2 days ago], Total Hip, CTR, Thyroidectomy, BTL, Colon/EGD) Anesthesia Results - Labs 09/18/16 05:44 09/18/16 05:44 Laboratory Tests 09/16/16 09/17/16 09/18/16 20:33 05:20 11:21 PT 12.8 H INR 1.2 APTT 26.2 POC Glucose 79 Est Mean Plasma Glucose 103 Hemoglobin A1c 5.2 Laboratory Results Impressions Abdomen/Pelvis CT 09/16/16 20:18 IMPRESSION: Residual or recurrent 5 mm calculus within the distal common bile duct with dilatation of the common bile duct and urothelial enhancement, suggestive of inflammation or potentially infection. A small amount of pneumobilia is also seen within the left hepatic lobe; correlate with history of any recent biliary intervention. Cholelithiasis. Mild gallbladder wall thickening is seen, for which cholecystitis is a consideration. Right upper quadrant ultrasound is suggested for further characterization. Diverticulosis, without yasmin diverticulitis. Fecal loading of the colon. D/ / Kt Rosenberg MD / Kt Rosenberg MD Interpreting Provider: Kt Rosenberg MD Cath/Invasive Procedure 09/17/16 18:30 IMPRESSION: Fluoroscopy provided for ERCP procedure. D/ / 09/18/2016 09:03:10 Catrachito Nieto MD / tim Interpreting Provider: Catrachito Nieto MD - Imaging EKG: image reviewed (50bpm SB) Anesthesia Exam Vital Signs Temp Pulse Resp BP Pulse Ox 09/18/16 14:50 98.9 F 56 16 155/72 97 09/18/16 11:00 97.7 F 53 16 134/64 94 L 09/18/16 07:25 98.3 F 53 16 136/69 96 09/18/16 03:25 98.3 F 58 14 151/71 96 09/18/16 02:26 98.1 F 59 18 167/70 96 09/17/16 23:13 98.0 F 59 14 171/72 96 09/17/16 22:25 172/71 09/17/16 20:55 97.6 F 59 15 180/88 96 09/17/16 20:10 99.3 F 50 12 154/67 97 09/17/16 20:00 49 16 160/68 94 L 09/17/16 19:50 98.2 F 49 16 164/67 96 09/17/16 19:40 51 14 175/79 97 09/17/16 19:30 53 14 153/84 97 09/17/16 19:20 97.4 F L 66 14 132/80 99 09/17/16 18:28 98.3 F 48 18 164/88 98 Height: 5'4" Weight: 73 KG 161# BMI = 28 - HEENT Pupil (Motor): Pupils equal, EOMI Mallampati: II Teeth: Normal Oral Opening: Greater than 3 - VOLTAGE TESTER LOC: Oriented VOLTAGE TESTER Motor: Normal RUE, Normal LUE, Normal RLE, Normal LLE, Normal Face VOLTAGE TESTER Sensory: Normal: RUE, LUE, RLE, LLE, Face - Cardiac Rhythm: Regular Murmur: None - Pulmonary Breath Sounds: bilateral Clear Respiratory Effort: Symmetrical Anesthesia Assess/Plan ASA Score: 3 (Anxiety/Depression, Hypothyroidism, HTN, Chol, Obesity) Anes Supervising Prov Stmt: Pt seen/evaluated, R&B discussed questions answered and consent obtained. Wendy Ashley MD
[2016-09-18] MEDS ORDERED: Acetaminophen IV 1,000 MG/100 ML INFUS..BTL ONE (17:03)
[2016-09-18] MEDS ORDERED: Metoclopramide 10 MG/2 ML VIAL ONE (17:03)
[2016-09-18] MEDS ORDERED: Famotidine 20 MG/2 ML VIAL ONE (17:03)
[2016-09-18] MEDS ORDERED: Scopolamine Patch 1.5 MG PATCH.TD72 ONE (17:06)
[2016-09-18] MEDS ORDERED: *HR* HYDROmorphone 2 MG/ML SYRINGE ONE (17:36)
--- NOTE | 2016-09-18 18:09 | Operative Note ---
Date of procedure: 09/18/16 Pre-op diagnosis: Cholelithiasis, Choledocholithiasis Post-op diagnosis: other (Cholelithiasis, Choledocholithiasis, Acute Cholecystitis) Procedure: Laparoscopic cholecystectomy Anesthesia: DORINDA Surgeon: Rex Steele Nurse Wound Care Other: LATONYA Schuler Condition: stable Disposition: PACU Procedure in Detail: Date of surgery: 09/18/16 After properly identifying the patient, the patient was brought to the operating room and placed in a supine position. After proper IV sedation was achieved followed by general endotracheal intubation, the patient's abdomen was prepped and draped in a normal sterile fashion. A timeout was performed noting the patient's name and type of procedure to be performed. A supraumbilical incision with an 11 blade scalpel was made down to the level of the rectus fascia and the rectus fascia was incised followed by placement of a 12 mm port through the incision. The abdomen was insufflated with carbon dioxide and a laparoscopic camera was placed through the port which showed no injury to the intra-abdominal organs upon entry.. A subxiphoid 5 mm port and a right subcostal margin 5 mm port were placed under direct camera visualization. The patient was placed in a reverse Trendelenburg position and the right upper quadrant was examined. The gallbladder was identified and noted to be distended pericholecystic fluid/edema consistent with acute cholecystitis. The gallbladder was then grasped with a nontraumatic grasper and retracted superiorly/anteriorly. There were minimal adhesions of the omentum to the infundibuli noted which were bluntly dissected without difficulty. There were noted enlarged lymphatics around the level of the infundibulum and cystic duct and the cystic duct was dilated consistent with the patient's previous common bile duct stone requiring ERCP. The cystic duct was isolated, clipped with laparoscopic clips, and incised with laparoscopic scissors. The cystic artery was likewise identified, clipped with laparoscopic clips, and incised with laparoscopic scissors. The gallbladder was then carefully dissected away from the gallbladder fossa with Bovie cauterization while careful bovie cauterization was used to maintain hemostasis. Once the gallbladder was dissected free it was removed from the abdomen via an Endobag. Reinspection of the right upper quadrant demonstrated mild bruising along the gallbladder fossa which was hemostatically controlled with Bovie cauterization and the right upper quadrant was copiously irrigated with normal saline solution until the effluent was clear. All ports were then removed from the abdomen after the abdomen was desufflated. The supraumbilical incision was closed by reapproximating the fascia using an 0 Vicryl suture in a [id number] fashion. The subcutaneous tissue was reapproximated with interrupted 3-0 Vicryl sutures and the epidermal and dermal layers for the remaining incisions were closed with 4-0 Monocryl sutures. Needle, sponge, and instrument counts were correct 2 and the incisions were covered with Steri-Strips and Band-Aids. The patient was aroused from IV sedation, extubated in the operating room without complication, and transported to the recovery room in stable condition.
--- NOTE | 2016-09-18 18:37 | Anesthesia Evaluation Post Op ---
Date of Encounter: 09/18/16 Time of Encounter: 18:36 - Vital Signs Vital Signs: Vital Signs/O2 Sat/Glucose, Most Recent Temp Pulse Resp BP Pulse Ox 98.2 F 74 16 160/74 97 09/18/16 18:12 09/18/16 18:32 09/18/16 18:32 09/18/16 18:32 09/18/16 18:32 Blood Glucose* 79 - Lungs Lungs: Clear Ascult./Percussion - Airway Airway: Non-obstructed - Cardiovascular Regular Rate - Mental Status Mental Status: Alert & Oriented, Answers Appropriately - Pain Pain Scale: 2 Pain Scale used: Numeric (1 - 10) - Nausea Vomiting Nausea Vomiting: Not Present - Hydration Hydration: NPO - Discharge PostOp Status: Transfer Patient to floor
[2016-09-18] MEDS ORDERED: Acetaminophen 325 MG TABLET PO PRN (19:02)
[2016-09-18] MEDS ORDERED: hydrALAZINE 10 MG TABLET PO PRN (19:02)
[2016-09-18] MEDS ORDERED: Benzonatate 100 MG CAPSULE PO PRN (19:02)
[2016-09-18] MEDS ORDERED: Ondansetron 4 MG/2 ML VIAL IVP PRN (19:02)
[2016-09-18] MEDS ORDERED: Naloxone 0.4 MG/ML INJ IVP PRN (19:02)
[2016-09-18] MEDS ORDERED: *HR* OxyCODONE Immed Rel 5 MG TABLET PO PRN (19:02)
[2016-09-19] MEDS: MetroNIDAZOLE 500 MG/100 ML 500 MG/100 ML BAG IVPB SCH (05:55)
[2016-09-19 06:16] LABS: Hematocrit 33.8 % (35.3-44.9); Hemoglobin 11.8 g/dL (11.5-15.4); Mean Corpuscular HGB Conc 34.9 g/dL (31.6-35.5); Mean Corpuscular Hemoglobin 31.4 pg (28.0-33.3); Mean Corpuscular Volume 89.9 fL (83.0-100.0); Mean Platelet Volume 11.5 fL (9.4-12.4); Platelet Count 108 K/mcL (140-400); Red Blood Count 3.76 M/mcL (3.82-4.97); Red Cell Distribution Width 12.2 % (11.5-14.5)
[2016-09-19 06:30] LABS: BUN/Creatinine Ratio 13 (6-26); Blood Urea Nitrogen 8 mg/dL (7-20); Calcium 8.4 mg/dL (8.6-10.8); Carbon Dioxide 20 mEq/L (19-29); Chloride 110 mEq/L (98-109); Glucose 94 mg/dL (70-99); Osmolality,Calculated 286 (280-300); Potassium 3.9 mEq/L (3.5-4.5); Sodium 139 mEq/L (136-145); eGFR For African Americans > 60 (> 60); eGFR For Non-African Americans > 60 (> 60)
[2016-09-19] MEDS ORDERED: Pantoprazole 40 MG VIAL IVP SCH (06:30)
[2016-09-19 07:20] VITALS: BP 144/69
[2016-09-19] MEDS ORDERED: Patient Taking Own Medication 1 EACH PO SCH (09:00)
[2016-09-19] MEDS ORDERED: Aspirin Enteric Coated 81 MG Tablet PO SCH (09:00)
--- NOTE | 2016-09-19 09:24 | Discharge Summary ---
<Mary Chi - Last Filed: 09/19/16 10:14> Date of Encounter: 09/19/16 Time of Encounter: 09:22 - Discharge Diagnosis (1) Acute cholecystitis Priority: Primary Status: Acute Comments: Cipro 500 BID Flagyl 500 BID No alcohol use while taking Flagyl (2) Calculus of common bile duct and gallbladder Priority: Primary Status: Resolved (3) Choledocholithiasis Priority: Primary Status: Resolved (4) Thrombocytopenia Priority: Secondary Status: Acute (5) Hypertension Priority: Secondary Status: Chronic Qualifiers: Hypertension type: essential hypertension Qualified Code(s): I10 - Essential (primary) hypertension (6) Hypothyroidism Priority: Secondary Status: Chronic Qualifiers: Hypothyroidism type: acquired Qualified Code(s): E03.9 - Hypothyroidism, unspecified (7) DVT prophylaxis Priority: Secondary Status: Acute - Discharge Medications Prescriptions: OxyCODONE Immed Rel [Roxicodone 5 MG] 10 mg PO Q6HR PRN #30 tablet PRN Reason: Pain Ciprofloxacin [Cipro] 500 mg PO BID #10 tablet Docusate [Colace] 100 mg PO BID PRN #30 capsule PRN Reason: Constipation MetroNIDAZOLE [Flagyl] 500 mg PO BID #10 tablet Home Medications: Aspirin Enteric Coated [Aspirin EC] 81 mg PO DAILY 03/10/16 [History] Cholecalciferol (D-3) [Vitamin D] 1,000 unit PO DAILY 03/10/16 [History] Levothyroxine [Synthroid] 50 mcg PO DAILY 03/10/16 [History] Drury-3/Dha/Epa/Fish Oil [Fish Oil 1,000 mg Softgel] 1,000 mg PO DAILY 03/10/16 [History] Omeprazole [PriLOSEC] 40 mg PO DAILY 09/17/16 [History] Rosuvastatin Calcium 10 mg PO DAILY 09/17/16 [History] Ciprofloxacin [Cipro] 500 mg PO BID #10 tablet 09/19/16 [Rx] Docusate [Colace] 100 mg PO BID PRN #30 capsule 09/19/16 [Rx] MetroNIDAZOLE [Flagyl] 500 mg PO BID #10 tablet 09/19/16 [Rx] OxyCODONE Immed Rel [Roxicodone 5 MG] 10 mg PO Q6HR PRN #30 tablet 09/19/16 [Rx] Allergies/Adverse Reactions: Allergies Penicillins Allergy (Verified 09/17/16 09:22) See Comments childhood allergy. unsure of reaction Procedures/tests Complete & Pending: Procedures Performed prior 72 hours Category Date Time Status ECG 12 lead ECG [ECG] AM 0600 Y 09/17/16 06:00 Ordered Date of admission: 09/16/16 23:29 Primary care physician: Jonh Guerra MD Consults: 09/18/16 09:01 Consult to Surgery [CONS] Routine Consulting Provider: Rex Steele Reason for Consult: Cholelithiasis/choledocolithiasis s/p ERCP with Dr. Carballo. multiple stones extracted. Call Completed: Yes Discharging clinician: Ac Mo Anticipated date of discharge: 09/19/16 - Patient Status Disposition: Home, Self-Care Condition: Good Overall status at discharge: patient is progressing back to baseline - Discharge Instructions Follow Up With: Jonh Guerra MD [Primary Care Provider] - Tammi Lincoln CNP [Advanced Practice Nurse] - 10/02/16 11:30 am (surgery follow-up) Additional Instructions: Do not drink alcohol while taking Flagyl. Doing so may cause a life-treatening reaction. Follow up with your PCP regarding results from your complete blood count lab to be completed in 5 days. #1 may shower, no tub bath for 2 weeks #2 wash incisions with soap and water and pat dry daily #3 no lifting, pushing, pulling more than 15 pounds for the next 2 weeks #4 no driving until off narcotics for 24 hours and able to safely react in the car #5 may climb stairs - Diet and Activity Activity: increase activity as tolerated Diet: advance to your usual diet Hospital course: Ms. Sterling is a 66 year old female who is day #1 s/p lab stephania. Sh presented to hospital with 6 week history of progressively worsening abdominal pain. Outpatient imaging revealed cholelithiasis. Upon admission to hospital, patient was found to have choledocolithiasis and mild gall bladder wall thickening on CT abdomen. She had ERCP per Dr. Carballo with multiple stones extracted. She underwent lap stephania per Dr. Steele yesterday. She is doing well this morning, eating a regular diet, ambulating well, urinating well. She will be discharged to home with plan to follow up with Dr. Steele. During hospital stay, patient was found to have thrombocytopenia. Platelets at discharge 09/19/16 are 108. We recommend patient have CBC completed in 5 days and that patient follow up with her PCP regarding these results. - Time Spent with Patient Total time spent providing and/or coordinating discharge services: Greater than 30 minutes (40 including time with patients and coordinating discharge) - Constitutional Vitals: Temp Pulse Resp BP Pulse Ox 98.7 F 62 16 144/69 94 L 09/19/16 07:13 09/19/16 07:13 09/19/16 07:13 09/19/16 07:13 09/19/16 07:13 General appearance: Present: mild distress, A&O X 3, obese, answers questions appropriately - Head Head exam: Present: atraumatic, normocephalic - Eye Eye exam: Present: EOMI, conjuntiva pink, sclera anicteric Pupils: Present: PERRL - Neck Neck exam general surgery: Present: supple, trachea midline. Absent: lymphadenopathy - Respiratory Respiratory exam: Present: CTAB. Absent: accessory muscle use, rales, rhonchi, wheezes - Cardiovascular Cardiovascular exam: Present: RRR, +S1, +S2, systolic murmur (1/6 systolic murmur). Absent: diastolic murmur, gallop, rubs - GI/Abdominal GI/Abdominal exam: Present: normal bowel sounds, soft, no peritoneal signs. Absent: distended, tenderness Additional comments: surgical scars to abdomen are clean, dry, and intact - Extremities Exam Extremities exam: Present: warm. Absent: pedal edema - Neurological Exam Neurological exam: Present: CN II-XII intact, oriented X3, no focal deficits. Absent: pronater drift, facial droop, speech deficit - Skin Skin exam: Present: dry, intact - VTE Documentation of Mechanical Device: Intermittent pneumatic compression device - Attending Attestation I examined this patient and my medical decision-making was reviewed with the FAMILY SPECIALIST/PA/Advanced Practice Nurse/Resident Physician. I agree with the documented findings, disposition and treatment plan as described except to the extent set forth below. <Ac Mo - Last Filed: 09/19/16 10:22> - Discharge Diagnosis (1) Calculus of common bile duct and gallbladder Status: Resolved (2) Choledocholithiasis Status: Resolved (3) Hypertension Status: Chronic Qualifiers: Hypertension type: essential hypertension Qualified Code(s): I10 - Essential (primary) hypertension (4) Hypothyroidism Status: Chronic Qualifiers: Hypothyroidism type: acquired Qualified Code(s): E03.9 - Hypothyroidism, unspecified Procedures/tests Complete & Pending: Procedures Performed prior 72 hours Category Date Time Status ECG 12 lead ECG [ECG] AM 0600 Y 09/17/16 06:00 Ordered Date of admission: 09/16/16 23:29 Primary care physician: Jonh Guerra MD Consults: 09/18/16 09:01 Consult to Surgery [CONS] Routine Consulting Provider: Rex Steele Reason for Consult: Cholelithiasis/choledocolithiasis s/p ERCP with Dr. Carballo. multiple stones extracted. Call Completed: Yes Hospital course: Ms. Sterling is a 66 year old female - Time Spent with Patient Total time spent providing and/or coordinating discharge services: - Constitutional Vitals: Temp Pulse Resp BP Pulse Ox 98.7 F 62 16 144/69 94 L 09/19/16 07:13 09/19/16 07:13 09/19/16 07:13 09/19/16 07:13 09/19/16 07:13 - Attending Attestation choledocolithiasis, acute cholecystitis. S/P ERCP and CYY continue 5 more days of Cipro and Flagyl
[2016-09-19] MEDS: 0.9 % Sodium Chloride 1,000 ML IVC SCH (09:47)
--- NOTE | 2016-09-19 09:48 | General Surgery Progress Note ---
Date of Encounter: 09/19/16 Time of Encounter: 09:30 - Assessment and Plan (1) Choledocholithiasis Current Visit: Yes Status: Resolved POD #1 from a laparoscopic cholecystectomy Advance to regular diet Supportive care/pain control Ambulate hallways See discharge for surgical instructions and Rx Subjective Patient reports: feels better, still having pain, pain is less, tolerating liquids well, voiding w/o difficulty, afebrile Objective Vital Signs - Last 8 Hours Temp Pulse Resp BP Pulse Ox 09/19/16 07:13 98.7 F 62 16 144/69 94 L 09/19/16 04:23 99.0 F 59 15 149/71 96 Intake and Output 09/18/16 09/19/16 09/19/16 23:59 07:59 15:59 Intake Total 100 / 100 1100 / 1100 240 / 240 Output Total 265 / 265 600 / 600 Balance -165 / -165 500 / 500 240 / 240 Intake: IV Fluids 100 / 100 700 / 700 0.9 % Sodium Chloride 1, 700 / 700 000 ML @ 125 mls/hr IVC . Q8H MAGALY Rx#:[id number] Flagyl 500 MG/100 ML 500 100 / 100 mg In 100 ml @ 100 mls/hr IVPB Q8H MAGALY Rx#: [id number] Oral 400 / 400 240 / 240 Output: Urine 225 / 225 600 / 600 Estimated Blood Loss 40 / 40 Other: Meal Breakfast Percent of Meal Consumed 5% # Voids 1 Weight 74.984 kg Patient Weight 09/19/16 23:59 Weight 74.984 kg - General physical appearance well developed, well nourished, no distress - Eyes normal ocular movement - ENT normal mucosa, atraumatic, normocephalic - Neck Neck exam: trachea midline - Respiratory normal respiratory effort, clear to auscultation - Cardiovascular Cardiovascular exam: Present: RRR - Abdomen Abdomen: Present: bowel sounds present, soft, tender (expected postoperative tenderness) - Incision Incision: Present: clean and dry, intact - Neurologic CN 2-12 grossly intact - Musculoskeletal normal gait, normal posture - Psychiatric oriented to time, oriented to person, oriented to place, speech is normal, memory intact - Labs 09/19/16 05:48 09/19/16 05:48 Diabetes panel 09/19/16 Range/Units 05:48 Sodium 139 (136-145) mEq/L Potassium 3.9 (3.5-4.5) mEq/L Chloride 110 H (98-109) mEq/L Carbon Dioxide 20 (19-29) mEq/L BUN 8 (7-20) mg/dL Creatinine 0.63 (0.57-1.11) mg/dL Glucose 94 (70-99) mg/dL Calcium 8.4 L (8.6-10.8) mg/dL Calcium panel 09/19/16 Range/Units 05:48 Calcium 8.4 L (8.6-10.8) mg/dL Pituitary panel 09/19/16 Range/Units 05:48 Sodium 139 (136-145) mEq/L Potassium 3.9 (3.5-4.5) mEq/L Chloride 110 H (98-109) mEq/L Carbon Dioxide 20 (19-29) mEq/L BUN 8 (7-20) mg/dL Creatinine 0.63 (0.57-1.11) mg/dL Glucose 94 (70-99) mg/dL Calcium 8.4 L (8.6-10.8) mg/dL Adrenal panel 09/19/16 Range/Units 05:48 Sodium 139 (136-145) mEq/L Potassium 3.9 (3.5-4.5) mEq/L Chloride 110 H (98-109) mEq/L Carbon Dioxide 20 (19-29) mEq/L BUN 8 (7-20) mg/dL Creatinine 0.63 (0.57-1.11) mg/dL Glucose 94 (70-99) mg/dL Calcium 8.4 L (8.6-10.8) mg/dL - VTE Documentation of Mechanical Device: Intermittent pneumatic compression device Consult Discharge Plan - Plan Additional Instructions: Follow up with your PCP regarding results from your complete blood count lab to be completed in 5 days. #1 may shower, no tub bath for 2 weeks #2 wash incisions with soap and water and pat dry daily #3 no lifting, pushing, pulling more than 15 pounds for the next 2 weeks #4 no driving until off narcotics for 24 hours and able to safely react in the car #5 may climb stairs Referrals: Jonh Guerra MD [Primary Care Provider] - Tammi Lincoln CNP [Advanced Practice Nurse] - 10/02/16 11:30 am (surgery follow-up) Prescriptions: OxyCODONE Immed Rel [Roxicodone 5 MG] 10 mg PO Q6HR PRN #30 tablet PRN Reason: Pain Docusate [Colace] 100 mg PO BID PRN #30 capsule PRN Reason: Constipation - Attending Attestation I examined this patient and my medical decision-making was reviewed with the SLITTER CREASER SLOTTER HELPER/PA/Advanced Practice Nurse/Resident Physician. I agree with the documented findings, disposition and treatment plan as described except to the extent set forth below.
[2016-09-19] MEDS ORDERED: *HR* Heparin 5,000 UNIT/ML VIAL SQ SCH (21:00)
== END 2016-09-19 12:03 | disposition home or self-care (01) ==
LOC: 3ANU 18:26 → EMEROO 18:26 → SUATTDRO 23:29 → 3ANU 23:50
PROVIDERS: ADMIT Internal Medicine; ATTEND Internal Medicine

== ENCOUNTER 2019-09-12 13:16 | Inpatient (IN) ==
[2019-09-12] MEDS ORDERED: Ondansetron 4 MG/2 ML VIAL IVP ONE ×2 (14:05→17:57)
[2019-09-12] MEDS ORDERED: 0.9 % Sodium Chloride 1,000 ML IVC ONE (14:05)
[2019-09-12] MEDS ORDERED: Isovue-370 500 ML BOTTLE IVP ONE (14:06)
[2019-09-12 14:35] LABS: Basophils % 0.6 %; Eosinophils # 0.1 K/mcL (0.0-0.6); Eosinophils % 1.4 %; Hematocrit 43.9 % (35.3-44.9); Hemoglobin 15.2 g/dL (11.5-15.4); Immature Granulocytes % 0.5 % (0-4); Lymphocytes # 1.6 K/mcL (0.6-4.6); Lymphocytes % 25.3 %; Mean Corpuscular HGB Conc 34.6 g/dL (31.6-35.5); Mean Corpuscular Hemoglobin 30.2 pg (28.0-33.3); Mean Corpuscular Volume 87.3 fL (83.0-100.0); Mean Platelet Volume 10.7 fL (9.4-12.4); Monocytes # 0.7 K/mcL (0.0-1.3); Monocytes % 11.1 %; Neutrophils # 3.8 K/mcL (1.6-8.9); Platelet Count 239 K/mcL (140-400); Red Blood Count 5.03 M/mcL (3.82-4.97); Red Cell Distribution Width 12.9 % (11.5-14.5); Segmented Neutrophils % 61.1 %; White Blood Count 6.3 K/mcL (4.3-11.1)
[2019-09-12 14:44] LABS: Alanine Aminotransferase 16 Units/L (7-52); Albumin 4.2 g/dL (3.5-5.7); Albumin/Globulin Ratio 1.3 (1.1-2.2); Alkaline Phosphatase 67 Units/L (34-104); Aspartate Amino Transferase 20 Units/L (13-39); BUN/Creatinine Ratio 31 (6-26); Bilirubin,Direct 0.3 mg/dL (0.0-0.2); Bilirubin,Indirect 0.8 mg/dL (0.0-1.0); Bilirubin,Total 1.1 mg/dL (0.3-1.0); Blood Urea Nitrogen 20 mg/dL (8-23); Calcium 10.2 mg/dL (8.6-10.3); Carbon Dioxide 26 mEq/L (23-29); Chloride 98 mEq/L (98-107); Globulin 3.3 g/dL (2.4-3.5); Glucose 82 mg/dL (70-105); Lipase 30 Units/L (11-82); Osmolality,Calculated 282 (280-300); Potassium 3.3 mEq/L (3.5-5.1); Sodium 135 mEq/L (136-145); Total Protein 7.5 g/dL (6.4-8.9); eGFR For African Americans > 60 (> 60); eGFR For Non-African Americans > 60 (> 60)
[2019-09-12 15:39] LABS: Bilirubin,Urine Negative (Negative); Blood,Urine Trace (Negative); Color,Urine Yellow (Yellow); Glucose,Urine (UA) Normal (Normal); Ketones,Urine 15 mg/dL (Negative); Leukocyte Esterase,Urine Moderate (Negative); Nitrite,Urine Negative (Negative); PH,Urine 6.5 pH Units (5.0-8.0); Protein,Urine Negative (Neg-Trace); Specific Gravity,Urine 1.012 (1.010-1.025); Urobilinogen,Urine Normal (Normal)
[2019-09-12 15:41] LABS: Bacteria,Urine None Seen per hpf (None-Few); Clarity,Urine Clear (Clear); Hyaline Casts,Urine None Seen per lpf (None-Few); Squamous Epithelial Cell,Urine Many per lpf (None-Few)
[2019-09-12] MEDS ORDERED: cefTRIAXone 1,000 MG in Water for inj. (sterile) 10 ML IVP ONE (16:57)
[2019-09-12] MEDS ORDERED: 0.9 % Sodium Chloride 1,000 ML IVC SCH (17:00)
[2019-09-12] MEDS ORDERED: *HR* Rocuronium Bromide 50 MG/5 ML VIAL ONE (17:25)
[2019-09-12] MEDS ORDERED: *HR* Propofol 200 MG/20 ML VIAL IVP ONE ×2 (17:25→17:31)
[2019-09-12] MEDS ORDERED: Lidocaine -MPF 2% 2 ML VIAL ONE ×2 (17:25→17:32)
[2019-09-12] MEDS ORDERED: *HR* FentaNYL (PF) 100 MCG/2 ML VIAL ONE (17:31)
[2019-09-12] MEDS ORDERED: Dexamethasone 4 MG/ML VIAL ONE (17:32)
[2019-09-12] MEDS ORDERED: CefOXitin 1,000 MG VIAL ONE ×2 (17:34→17:35)
[2019-09-12] MEDS ORDERED: Acetaminophen IV 1,000 MG/100 ML INFUS..BTL ONE (17:56)
[2019-09-12] MEDS ORDERED: *HR* OxyCODONE Immed Rel 5 MG TABLET PO PRN (17:57)
[2019-09-12] MEDS ORDERED: *HR* Heparin 5,000 UNIT/ML VIAL SQ SCH (18:00)
[2019-09-12] MEDS ORDERED: CefOXitin 2,000 MG VIAL ONE (18:30)
[2019-09-12] MEDS ORDERED: cefOXitin 2,000 MG in Water for inj. (sterile) 20 ML IVP ONE (18:33)
[2019-09-12] MEDS ORDERED: Povidone-Iodine 28.4 GM TUBE TP ONE (18:50)
[2019-09-12] MEDS: *HR* HYDROmorphone (PF) 1 MG/ML SYRINGE IVP PRN ×4 (21:15→21:38)
[2019-09-12] MEDS ORDERED: *HR* Metoprolol 5 MG/5 ML VIAL IVP PRN (22:13)
[2019-09-12] MEDS ORDERED: Ondansetron 4 MG/2 ML VIAL IVP PRN (22:13)
[2019-09-12] MEDS ORDERED: Morphine Sulfate 2 MG/ML SYRINGE IVP PRN (22:13)
[2019-09-12] MEDS: 0.9 % Sodium Chloride 1,000 ML IVC SCH (23:19)
[2019-09-12] MEDS: cefOXitin 2,000 MG in Water for inj. (sterile) 20 ML IVP SCH (23:19)
[2019-09-13 04:19] LABS: Basophils % 0.1 %; Hematocrit 41.2 % (35.3-44.9); Hemoglobin 13.8 g/dL (11.5-15.4); Immature Granulocytes % 0.4 % (0-4); Lymphocytes # 0.5 K/mcL (0.6-4.6); Lymphocytes % 4.5 %; Mean Corpuscular HGB Conc 33.5 g/dL (31.6-35.5); Mean Corpuscular Hemoglobin 30.5 pg (28.0-33.3); Mean Corpuscular Volume 91.2 fL (83.0-100.0); Mean Platelet Volume 10.5 fL (9.4-12.4); Monocytes # 0.8 K/mcL (0.0-1.3); Monocytes % 7.8 %; Neutrophils # 9.2 K/mcL (1.6-8.9); Platelet Count 179 K/mcL (140-400); Red Blood Count 4.52 M/mcL (3.82-4.97); Red Cell Distribution Width 13.1 % (11.5-14.5); Segmented Neutrophils % 87.2 %
[2019-09-13 04:20] LABS: White Blood Count 10.6 K/mcL (4.3-11.1)
[2019-09-13 04:41] LABS: BUN/Creatinine Ratio 32 (6-26); Blood Urea Nitrogen 15 mg/dL (8-23); Calcium 8.4 mg/dL (8.6-10.3); Carbon Dioxide 20 mEq/L (23-29); Chloride 106 mEq/L (98-107); Glucose 94 mg/dL (70-105); Osmolality,Calculated 287 (280-300); Potassium 4.1 mEq/L (3.5-5.1); Sodium 138 mEq/L (136-145); eGFR For African Americans > 60 (> 60); eGFR For Non-African Americans > 60 (> 60)
[2019-09-13] MEDS: Pantoprazole 40 MG VIAL IVP SCH (06:14)
[2019-09-13] MEDS: *HR* Heparin 5,000 UNIT/ML VIAL SQ SCH ×2 (06:14→18:14)
[2019-09-13] MEDS: cefOXitin 2,000 MG in Water for inj. (sterile) 20 ML IVP SCH (10:02)
[2019-09-13] MEDS ORDERED: Acetaminophen IV 1,000 MG/100 ML INFUS..BTL IVPB SCH (10:55)
[2019-09-13] MEDS: Ketorolac 15 MG/ML VIAL IVP SCH ×3 (12:49→23:40)
[2019-09-13] MEDS: Levothyroxine Sodium 100 MCG VIAL IVP SCH (12:49)
[2019-09-13] MEDS ORDERED: Dextrose Gel 15 GM/37.5 ML TUBE PO PRN ×2 (15:13)
[2019-09-13] MEDS: D5% in Water 1,000 ML IVC PRN (15:44)
[2019-09-13] MEDS: *HR* Dextrose 50 % in Water (Syg) 50 ML SYRINGE IVP PRN (15:44)
[2019-09-13] MEDS: 0.9 % Sodium Chloride 1,000 ML IVC SCH (15:45)
[2019-09-13] MEDS ORDERED: Isovue-370 500 ML BOTTLE IVP ONE (16:25)
[2019-09-13] MEDS: Acetaminophen IV 1,000 MG/100 ML INFUS..BTL IVPB SCH (23:40)
[2019-09-14] MEDS: D5% in Water 1,000 ML IVC PRN (03:33)
[2019-09-14 04:37] LABS: Basophils % 0.2 %; Eosinophils % 0.3 %; Hematocrit 35.9 % (35.3-44.9); Hemoglobin 11.9 g/dL (11.5-15.4); Immature Granulocytes % 0.2 % (0-4); Lymphocytes # 1.4 K/mcL (0.6-4.6); Mean Corpuscular HGB Conc 33.1 g/dL (31.6-35.5); Mean Corpuscular Hemoglobin 30.7 pg (28.0-33.3); Mean Corpuscular Volume 92.8 fL (83.0-100.0); Mean Platelet Volume 10.4 fL (9.4-12.4); Monocytes # 0.9 K/mcL (0.0-1.3); Monocytes % 10.2 %; Neutrophils # 6.4 K/mcL (1.6-8.9); Platelet Count 145 K/mcL (140-400); Red Blood Count 3.87 M/mcL (3.82-4.97); Red Cell Distribution Width 13.2 % (11.5-14.5); Segmented Neutrophils % 73.1 %; White Blood Count 8.8 K/mcL (4.3-11.1)
[2019-09-14 05:00] LABS: BUN/Creatinine Ratio 34 (6-26); Blood Urea Nitrogen 17 mg/dL (8-23); Calcium 8.2 mg/dL (8.6-10.3); Carbon Dioxide 27 mEq/L (23-29); Chloride 103 mEq/L (98-107); Glucose 140 mg/dL (70-105); Magnesium 2.1 mg/dL (1.6-2.6); Osmolality,Calculated 284 (280-300); Phosphorous 1.8 mg/dL (2.7-4.5); Potassium 3.8 mEq/L (3.5-5.1); Sodium 135 mEq/L (136-145); eGFR For African Americans > 60 (> 60); eGFR For Non-African Americans > 60 (> 60)
[2019-09-14] MEDS: Ketorolac 15 MG/ML VIAL IVP SCH ×4 (06:11→23:24)
[2019-09-14] MEDS: Acetaminophen IV 1,000 MG/100 ML INFUS..BTL IVPB SCH ×3 (06:11→20:26)
[2019-09-14] MEDS: Pantoprazole 40 MG VIAL IVP SCH (06:12)
[2019-09-14] MEDS: *HR* Heparin 5,000 UNIT/ML VIAL SQ SCH ×2 (06:12→17:37)
[2019-09-14] MEDS: 0.9 % Sodium Chloride 1,000 ML IVC SCH ×2 (10:11→14:05)
[2019-09-14] MEDS: Levothyroxine Sodium 100 MCG VIAL IVP SCH (10:12)
[2019-09-15] MEDS: 0.9 % Sodium Chloride 1,000 ML IVC SCH ×2 (00:43→17:54)
[2019-09-15] MEDS: *HR* Dextrose 50 % in Water (Syg) 50 ML SYRINGE IVP PRN (02:33)
[2019-09-15] MEDS: D5% in Water 1,000 ML IVC PRN ×2 (03:35→18:08)
[2019-09-15] MEDS: *HR* Heparin 5,000 UNIT/ML VIAL SQ SCH ×2 (05:05→18:08)
[2019-09-15] MEDS: Ketorolac 15 MG/ML VIAL IVP SCH ×4 (05:05→23:07)
[2019-09-15] MEDS: Pantoprazole 40 MG VIAL IVP SCH (05:05)
[2019-09-15] MEDS: Acetaminophen IV 1,000 MG/100 ML INFUS..BTL IVPB SCH ×3 (05:06→21:03)
[2019-09-15 06:19] LABS: Basophils % 0.3 %; Eosinophils # 0.1 K/mcL (0.0-0.6); Hematocrit 35.4 % (35.3-44.9); Hemoglobin 11.7 g/dL (11.5-15.4); Immature Granulocytes % 0.2 % (0-4); Lymphocytes % 14.8 %; Mean Corpuscular HGB Conc 33.1 g/dL (31.6-35.5); Mean Corpuscular Hemoglobin 30.4 pg (28.0-33.3); Mean Corpuscular Volume 91.9 fL (83.0-100.0); Mean Platelet Volume 10.4 fL (9.4-12.4); Monocytes # 0.5 K/mcL (0.0-1.3); Monocytes % 7.5 %; Platelet Count 133 K/mcL (140-400); Red Blood Count 3.85 M/mcL (3.82-4.97); Red Cell Distribution Width 13.2 % (11.5-14.5); Segmented Neutrophils % 75.2 %; White Blood Count 6.6 K/mcL (4.3-11.1)
[2019-09-15 06:44] LABS: BUN/Creatinine Ratio 32 (6-26); Blood Urea Nitrogen 12 mg/dL (8-23); Calcium 7.9 mg/dL (8.6-10.3); Carbon Dioxide 26 mEq/L (23-29); Chloride 104 mEq/L (98-107); Glucose 100 mg/dL (70-105); Magnesium 1.9 mg/dL (1.6-2.6); Osmolality,Calculated 284 (280-300); Potassium 3.5 mEq/L (3.5-5.1); Sodium 137 mEq/L (136-145); eGFR For African Americans > 60 (> 60); eGFR For Non-African Americans > 60 (> 60)
[2019-09-15] MEDS: Levothyroxine Sodium 100 MCG VIAL IVP SCH (10:22)
[2019-09-15] MEDS: Chloraseptic Spray 177 ML BOTTLE MM PRN (21:45)
[2019-09-16] MEDS: Ketorolac 15 MG/ML VIAL IVP SCH ×2 (04:55→12:37)
[2019-09-16] MEDS: *HR* Heparin 5,000 UNIT/ML VIAL SQ SCH ×2 (04:55→17:54)
[2019-09-16] MEDS: Pantoprazole 40 MG VIAL IVP SCH (04:56)
[2019-09-16] MEDS: D5% in Water 1,000 ML IVC PRN ×2 (04:56→17:54)
[2019-09-16] MEDS: Chloraseptic Spray 177 ML BOTTLE MM PRN (04:58)
[2019-09-16] MEDS: Acetaminophen IV 1,000 MG/100 ML INFUS..BTL IVPB SCH ×2 (04:58→12:38)
[2019-09-16 05:36] LABS: Basophils % 0.3 %; Eosinophils # 0.2 K/mcL (0.0-0.6); Eosinophils % 2.8 %; Hematocrit 36.8 % (35.3-44.9); Hemoglobin 12.2 g/dL (11.5-15.4); Immature Granulocytes % 0.3 % (0-4); Lymphocytes % 16.2 %; Mean Corpuscular HGB Conc 33.2 g/dL (31.6-35.5); Mean Corpuscular Hemoglobin 30.4 pg (28.0-33.3); Mean Corpuscular Volume 91.8 fL (83.0-100.0); Mean Platelet Volume 10.4 fL (9.4-12.4); Monocytes # 0.5 K/mcL (0.0-1.3); Monocytes % 8.8 %; Neutrophils # 4.3 K/mcL (1.6-8.9); Platelet Count 157 K/mcL (140-400); Red Blood Count 4.01 M/mcL (3.82-4.97); Red Cell Distribution Width 13.2 % (11.5-14.5); Segmented Neutrophils % 71.6 %
[2019-09-16 06:06] LABS: BUN/Creatinine Ratio 18 (6-26); Blood Urea Nitrogen 7 mg/dL (8-23); Carbon Dioxide 25 mEq/L (23-29); Chloride 104 mEq/L (98-107); Glucose 111 mg/dL (70-105); Magnesium 1.9 mg/dL (1.6-2.6); Osmolality,Calculated 283 (280-300); Phosphorous 2.4 mg/dL (2.7-4.5); Potassium 3.5 mEq/L (3.5-5.1); Sodium 137 mEq/L (136-145); eGFR For African Americans > 60 (> 60); eGFR For Non-African Americans > 60 (> 60)
[2019-09-16] MEDS: Levothyroxine Sodium 100 MCG VIAL IVP SCH (08:02)
[2019-09-16] MEDS ORDERED: Ibuprofen 600 MG TABLET PO PRN (14:41)
[2019-09-16] MEDS: 0.9 % Sodium Chloride 1,000 ML IVC SCH ×2 (17:54→20:51)
[2019-09-17] MEDS: Pantoprazole 40 MG VIAL IVP SCH (05:31)
[2019-09-17] MEDS: *HR* Heparin 5,000 UNIT/ML VIAL SQ SCH ×2 (05:31→18:14)
[2019-09-17] MEDS: Acetaminophen 325 MG TABLET PO PRN (09:11)
[2019-09-17] MEDS: D5% in Water 1,000 ML IVC PRN (10:07)
[2019-09-17] MEDS: 0.9 % Sodium Chloride 1,000 ML IVC SCH (20:19)
[2019-09-18] MEDS: Pantoprazole 40 MG VIAL IVP SCH (06:02)
[2019-09-18] MEDS: *HR* Heparin 5,000 UNIT/ML VIAL SQ SCH (06:03)
[2019-09-18] MEDS: 0.9 % Sodium Chloride 1,000 ML IVC SCH (06:19)
[2019-09-18 14:23] VITALS: BP 146/62
[2019-09-18] MEDS: Acetaminophen 325 MG TABLET PO PRN (17:29)
== END 2019-09-18 18:25 | disposition home or self-care (01) | DRG 982 ==
LOC: EMEROOARM 13:16 → 3ANU 13:16
PROVIDERS: ADMIT Surgery; ATTEND Surgery